=== PATIENT | male | born 1935 | race Caucasian/White ===

== ENCOUNTER 2016-02-28 09:42 | Emergency (ER) | payer OTHER ==
[2016-02-28 10:27] LABS: COLOR YELLOW; LEUKOCYTE ESTERASE,URINE NEGATIVE (NEGATIVE); NITRITE,URINE NEGATIVE (NEGATIVE); PH,URINE 6.5 (5.0-7.5)
[2016-02-28 10:51] VITALS: RESP 16
[2016-02-28 12:47] VITALS: BP 168/80; PULSE 71; TEMP 98.6; O2SAT 97
--- NOTE | 2016-02-28 12:57 | UCPHY ---
H & P Time Seen by Provider: 02/28/16 11:15 Patient Type: Established HPI/ROS: This patient with a known history of benign prostatic hypertrophy has had increasing difficulty passing urine over the past 4 days. He explains that he now is having urgency to urinate every 15 minutes but is only able to pass a very small amount of urine. He is also having some stress incontinence. He reports no other urinary symptoms. He has associated lower belly pressure of moderate severity similar to previous urinary obstruction. He notes no exacerbating or alleviating factors for his symptoms. He was started on Flomax after a visit in December to [facility] for the same ailment and followed up with Urology but was not continued on Flomax per his report. ROS: No fevers. No cardiopulmonary complaints. No upper belly pain. No vomiting. No testicle pain. 7 point ROS is otherwise negative Past Medical/Surgical History: Previous lower urinary obstruction from BPH Cardiac stents Hypertension Potential pelvic bone cancer being worked up currently per his . Smoking Status: Former smoker Physical Exam: General Appearance: Pleasant elderly male Alert, no distress. Eyes: Pupils equal and round no pallor or injection. ENT, Mouth: Mucous membranes moist. Respiratory: There are no retractions, lungs are clear to auscultation. Cardiovascular: Regular rate and rhythm. Gastrointestinal: Soft, mild lower belly tenderness with what feels to be by palpation an over distended bladder. Neurological: Alert with no deficits Skin: Warm and dry, no rashes. Musculoskeletal: Neck is supple nontender. Extremities are symmetrical, full range of motion. Psychiatric: Mood and affect normal DIFFERENTIAL DIAGNOSIS: After history and physical exam differential diagnosis was considered for urinary retention from lower urinary obstruction secondary to BPH, rule out UTI, Constitutional: Initial Vital Signs Temperature (C) 36.9 C 02/28/16 10:48 Heart Rate 69 02/28/16 10:48 Respiratory Rate 16 02/28/16 10:48 Blood Pressure 142/74 H 02/28/16 10:48 O2 Sat (%) 95 02/28/16 10:48 O2 Delivery Mode Room Air Allergies/Adverse Reactions: No Known Allergies Allergy (Verified 02/28/16 10:49) Home Medications: Medication Instructions Recorded ASPIRIN 01/20/16 CALCIUM 01/20/16 Clopidogrel 01/20/16 Crestor 01/20/16 Dulcolax 01/20/16 Irbesartan 01/20/16 Isosorbide Mononitrate 01/20/16 Metoprolol Succinate 01/20/16 Nexium 01/20/16 Pepcid 01/20/16 Tylenol 01/20/16 Zetia 01/20/16 Gabapentin 02/28/16 [place] 5/325 (*) 02/28/16 Tamsulosin HCl [Flomax 0.4 MG (*)] 0.4 mg PO DAILY #10 cap 02/28/16 MDM/Departure - MDM Diagnostics: Urinalysis is normal ED Course/Re-evaluation: Osborn catheter placed by our nurse with 1700 cc of urine out. Patient is fitted with a leg bag. He started on Flomax instructed to follow up with Urology again this week. - Depart Disposition: Home, Routine, Self-Care Clinical Impression: urinary retention, Urinary retention due to benign prostatic hyperplasia Condition: Good Instructions: Urinary Retention in Men (ED), Osborn Catheter Placement and Care (ED) Additional Instructions: Diagnosis: Lower urinary retention from benign prostatic hypertrophy Plan: Call Dr. Colbert to arrange follow-up appointment Flomax Continue your stool softeners for constipation. Prescriptions: Tamsulosin HCl [Flomax 0.4 MG (*)] 0.4 mg PO DAILY #10 cap Referrals: Owen Colbert MD [Medical Doctor] - As per Instructions Christina Chaves MD [Primary Care Provider] - As per Instructions - PQRS PQRS Measurement: 134: Depression screening and followup, PRIME MD-PHQ2 (12 years and older) Over the last 2 weeks, how often have you been bothered by any of the following problems? 1. Feeling down, depressed, or hopeless? 2. Little interest or pleasure in doing things? [Patient answered no to both 1 and 2] 130: Documentation of medications. Reviewed all patient medications, doses, route and frequency. 226: Do you smoke? [No.] 47: 65 and older: Advanced care planning. Patient designates surrogate decision maker as spouse. 51: 18 years old and older with diagnosis of COPD, spirometry performance. NA 52: 18 years old and older with COPD and symptoms of COPD or FEV1<60% predicted prescribed a B Agonist. NA
== END 2016-02-28 12:44 | disposition home or self-care (01) ==
LOC: CED 09:42
PROC: 0T9B70Z Drainage of Bladder with Drainage Device, Via Natural or Artificial Opening (ICD-10-PCS; principal; 2016-02-28)
DX: N40.1 Benign prostatic hyperplasia with lower urinary tract symptoms (principal); R33.9 Retention of urine, unspecified; I10 Essential (primary) hypertension; Z95.5 Presence of coronary angioplasty implant and graft; Z87.891 Personal history of nicotine dependence
CPT/HCPCS: 51702; G0463; 81003-PO; 99214-PO

== ENCOUNTER 2016-02-29 07:07 | Day surgery (SDC) | payer OTHER ==
[2016-02-29 08:13] LABS: HEMATOCRIT 42.1 % (40.0-51.0)
[2016-02-29 08:23] LABS: PROTIME(PATIENT) 13.1 SEC (12.0-15.0)
[2016-02-29 08:24] LABS: APTT 29.9 SEC (23.0-38.0)
[2016-02-29] MEDS ORDERED: MIDAZOLAM 2 MG/2 ML VIAL ONE (08:40)
[2016-02-29] MEDS ORDERED: fentaNYL 100 MCG/2 ML INJ ONE (08:41)
[2016-02-29] MEDS ORDERED: PROMETHAZINE HCL 25 MG/ML VIAL ONE (09:28)
[2016-02-29] MEDS ORDERED: BUPIVACAINE 0.25% 30 ML SDV ONE (09:46)
[2016-02-29] MEDS ORDERED: BUPIVACAINE 0.5% 10 ML SDV ONE (09:46)
--- NOTE | 2016-02-29 11:44 | CT ---
CT-Guided Core Needle Biopsy of Right Ilium History: Lytic tumor within multiple bones. Unknown primary source. Small pulmonary nodules have been reported on outside CT scan. Consent: Risks and benefits of the procedure were discussed in detail, and informed consent was obta ined. Medications: Intravenous conscious sedation and analgesia were given under my supervision. Vital sign s, pulse oximetry, and electrocardiogram were monitored. The patient received 0.5 milligrams of Verse d and 0.75 micrograms of fentanyl intravenously. 12.5 mg of Phenergan were given intravenously. Start time: 932. End time: 1014. Technique: With the patient prone, adhesive radiopaque grid was placed over the right buttock. Multid etector helical CT images were obtained using dose reduction technology. Skin site was selected and l abeled. The skin was prepped and draped in sterile fashion. 1% Xylocaine was used for local anestheti c in the soft tissues. A 22-gauge spinal needle was advanced to the surface of bone, and 0.5% bupivac cristal was injected for periosteal anesthesia. After skin bob with a scalpel, a 5 cm long 10-gauge herbert de needle was inserted into the peripheral cortex of the posterior edge of the right ilium, near the sacroiliac joint, confirmed with CT images. The guide needle allowed coaxial passage of standard celia th and long length 13-gauge bone biopsy needles, using the [employer] drill. Additional core tissue spe cimens were obtained using coaxial 18-gauge Biopty needle. Specimens were placed directly into formal in and Hanks solution. (Adherent specimens were initially rinsed off into sterile saline and later tr ansferred to formalin with a pipette.) Guide needle was removed. Sterile dressing was applied. The pa tienicole tolerated the procedure well and was taken to an observation room in stable condition. Findings: The guide needle abuts the posterior cortex of the right ilium just superficial to the larg e lytic area. Large lytic tumor infiltrates the right sacral wing, passing across the right sacroiliac joint to inf iltrate the right ilium, posteriorly. The tumor is expansile and measures up to 6.6 cm AP x 5.2 cm tr ansverse. Tumor invades the right sacral foramina at S1, S2, and S3, and also distorts the exiting ne rve roots and right lumbosacral plexus. Additional lytic lesions are observed, including a large lesi on in the right side of the vertebral body of L5, and a small lesion in the left superior articular f acet of L5. Impressions 1. CT-guided core needle biopsy of right ilium. 2. Multiple lytic lesions of bone. 3. Tumor invasion of multiple right sacral foramina and right lumbosacral plexus. - - - - - - - - - - - - - - - - - - - - - - - - - - - - - - - - - - - - - - - - - - - - (PQRS Measures: Current medications were listed in the medical record, including all known prescript ions, jigo-grh-bfaiatt medications, herbal medications, and nutritional supplements. Tobacco Use: Non e. Prophylactic Antibiotic: Unnecessary. VTE Prophylaxis: Unnecessary.)
[2016-03-03 16:10] LABS: FINAL DIAGNOSIS See Comments (()); MICROSCOPIC DESCRIPTION See Comments (())
== END 2016-02-29 12:40 | disposition home or self-care (01) ==
LOC: FIMAGING 07:07
PROVIDERS: ATTEND Internal Medicine Hematology & Oncology
PROC: 0QB23ZX Excision of Right Pelvic Bone, Percutaneous Approach, Diagnostic (ICD-10-PCS; principal; 2016-02-29 10:30)
DX: M53.3 Sacrococcygeal disorders, not elsewhere classified (principal); M54.10 Radiculopathy, site unspecified; M54.9 Dorsalgia, unspecified; I10 Essential (primary) hypertension; I25.10 Atherosclerotic heart disease of native coronary artery without angina pectoris
CPT/HCPCS: 88184-90; 88185-91; J2250; J2550; J3010

== ENCOUNTER 2016-03-01 13:05 | Emergency (ER) | payer OTHER ==
[2016-03-01 13:43] VITALS: BP 148/70; PULSE 75; RESP 18; TEMP 98; O2SAT 96
[2016-03-01 14:14] LABS: COLOR ORANGE; LEUKOCYTE ESTERASE,URINE NEGATIVE (NEGATIVE); NITRITE,URINE NEGATIVE (NEGATIVE); PH,URINE 6.5 (5.0-7.5)
[2016-03-01 14:28] LABS: RBC,URINE >182 /hpf (0-3)
[2016-03-01 14:29] LABS: BACTERIA TRACE /hpf (NONE SEEN); MUCUS 1+ /lpf (NONE-1+)
--- NOTE | 2016-03-01 14:40 | UCPHY ---
[id number] This patient reports 7 days of constipation-no belly movement in 7 days despite feeling that he needs ago he is unable to pass stool. He has been using senna S , Colace and Dulcolax without success. I saw him here 2 days ago for lower urinary obstruction with 1700 mL of urine output with Osborn catheter placement. Urine was clean at that time. He saw Dr. Colbert-urologist yesterday with plan to keep the Osborn catheter in for another day beyond today. He denies any significant associated symptoms with the constipation other than being unable to have a bowel movement. Patient was started on hydrocodone which she has been taking periodically for pain related to pelvic lytic lesions. ROS: No fevers. He reports no significant abdominal pain. He did notice slightly pink tinged urine this morning for the 1st time he reports mild discomfort in the penis from the Osborn catheter. He also requests a new leg bag because it is becoming disconnected from the Osborn catheter he reports no back pain. No dark tarry stools or bloody stools. No nausea vomiting. He still tolerating good p.o. intake and 7 point ROS is otherwise negative. Past Medical/Surgical History: Recent history is notable for lytic lesions of the pelvis with unknown primary source he had a needle biopsy done by Dr. Owen Ruelas interventional Radiology yesterday of a sacral lesion A review of the patient's chart reveals normal electrolytes and kidney function on February 15, 2016 Smoking Status: Former smoker Physical Exam: General Appearance: Alert, no distress. Eyes: Pupils equal and round no pallor or injection. ENT, Mouth: Mucous membranes moist. Respiratory: There are no retractions, lungs are clear to auscultation. Cardiovascular: Regular rate and rhythm. Gastrointestinal: Abdomen is soft and nontender, no masses, bowel sounds normal. Rectal exam: Patient has brown stool, mild prostatic swelling with no tenderness no hemorrhoids no tenderness no stool impaction : No testicular swelling or tenderness. Osborn catheter is in place Neurological: Alert with no focal deficits Skin: Warm and dry, no rashes. Musculoskeletal: Neck is supple nontender. Extremities are symmetrical, full range of motion. Psychiatric: Mood and affect are normal DIFFERENTIAL DIAGNOSIS: After history and physical exam differential diagnosis was considered for [ ] Constitutional: Initial Vital Signs Temperature (C) 36.6 C 03/01/16 13:40 Heart Rate 75 03/01/16 13:40 Respiratory Rate 18 03/01/16 13:40 Blood Pressure 148/70 H 03/01/16 13:40 O2 Sat (%) 96 03/01/16 13:40 O2 Delivery Mode Room Air Allergies/Adverse Reactions: No Known Allergies Allergy (Verified 02/28/16 10:49) Home Medications: Medication Instructions Recorded ASPIRIN 01/20/16 CALCIUM 01/20/16 Clopidogrel 01/20/16 Crestor 01/20/16 Dulcolax 01/20/16 Irbesartan 01/20/16 Isosorbide Mononitrate 01/20/16 Metoprolol Succinate 01/20/16 Nexium 01/20/16 Pepcid 01/20/16 Tylenol 01/20/16 Zetia 01/20/16 Gabapentin 02/28/16 [place] 5/325 (*) 02/28/16 Tamsulosin HCl [Flomax 0.4 MG (*)] 0.4 mg PO DAILY #10 cap 02/28/16 Gabapentin 03/01/16 Vicodin 5-300 mg Tablet 03/01/16 MDM/Departure - [facility] ED Course/Re-evaluation: Soapsuds enema followed by large BM. The patient feels relief. We counseled him regarding constipation. - Depart Disposition: Home, Routine, Self-Care Clinical Impression: Constipation Qualifiers: Constipation type: drug induced constipation Qualifier Code: (K59.03) Drug induced constipation Condition: Good Instructions: High Fiber Diet (ED), Constipation (ED) Additional Instructions: Diagnosis: Medication related constipation 2. Lower urinary obstruction Plan: Drink plenty fluids Continue current medications Add MiraLax-take daily in addition to her other meds until constipation resolved Follow-up with primary care physician The emergency department for any significant worsening despite the treatment plan Referrals: Christina Chaves MD [Primary Care Provider] - As per Instructions - PQRS PQRS Measurement: 134: Depression screening and followup, PRIME -PHQ2 (12 years and older) Over the last 2 weeks, how often have you been bothered by any of the following problems? 1. Feeling down, depressed, or hopeless? 2. Little interest or pleasure in doing things? Patient answered no to both 1 and 2 130: Documentation of medications. Reviewed all patient medications, doses, route and frequency. 226: Do you smoke? [No.] 47: 65 and older: Advanced care planning. Patient designates surrogate decision maker as spouse 51: 18 years old and older with diagnosis of COPD, spirometry performance. NA 52: 18 years old and older with COPD and symptoms of COPD or FEV1<60% predicted prescribed a B Agonist. NA
== END 2016-03-01 15:28 | disposition home or self-care (01) ==
LOC: CED 13:05
DX: K59.03 Drug induced constipation (principal); N13.9 Obstructive and reflux uropathy, unspecified
CPT/HCPCS: 81003-PO; 81015-PO; 82270-PO; G0463-PO

== ENCOUNTER → 2016-03-16 | Outpatient (CLI) | payer OTHER ==
[~2016-03-16] MED LIST: GADOBUTROL 10 ML VIAL IVP ONE
--- NOTE | 2016-03-16 17:14 | MR ---
MRI of the Brain (Without and With Contrast) at 1542 hours Clinical Indications: Staging metastatic lung carcinoma Technique: T1-weighted images were acquired axially and sagittally from the foramen magnum to the ve rtex. Axial fast inversion-recovery, fast T2-weighted, and diffusion-weighted axial images were obta ined without contrast. Postcontrast axial and coronal images with the uneventful intravenous administ ration of 9 mL Gadavist contrast. Findings: Slightly limited due to patient motion artifact. The ventricles, cisterns, and sulci are wi dened consistent with atrophy. No hydrocephalus, midline shift, herniation, or epidural/subdural hem atomas. No intracranial hemorrhage or masses. Diffusion-weighted images demonstrate no acute infarct. Cerebellar tonsils are in normal position. Pituitary gland is normal in size. Normal signal flow-voi d in the superior sagittal sinus, basilar artery, and bilateral internal carotid arteries indicating patency. Several nonspecific bilateral white matter hyperintense T2/FLAIR signal abnormalities withou t mass effect or enhancement. Postcontrast images demonstrate no enhancing lesions or abnormal leptom eningeal enhancement. Paranasal sinuses and mastoid air cells are clear. Impression: 1. Mild atrophy. 2. No acute hemorrhage, definite acute infarct, hydrocephalus or mass effect. 3. Multiple nonspecific hyperintense T2/FLAIR signal abnormalities in the white matter of bilateral c erebral hemispheres. Differential diagnosis includes moderate microvascular ischemic gliosis, post-in fectious/post-inflammatory sequela, versus less likely atypical demyelinating disease, or migraine-re lated sequela. 4. No enhancing lesions or cerebral metastasis.
== END ==
LOC: FIMAGING 14:42
PROVIDERS: ATTEND Internal Medicine Hematology & Oncology
DX: R90.89 Other abnormal findings on diagnostic imaging of central nervous system (principal); C34.90 Malignant neoplasm of unspecified part of unspecified bronchus or lung
CPT/HCPCS: 70553; A9585

== ENCOUNTER 2016-04-14 01:29 | Inpatient (IN) | payer OTHER ==
[2016-04-14] MEDS ORDERED: ONDANSETRON DISINTEGRATING 4 MG TAB PO PRN (03:28)
[2016-04-14] MEDS ORDERED: ACETAMINOPHEN 325 MG TAB PO PRN (03:28)
[2016-04-14] MEDS ORDERED: ONDANSETRON 4 MG/2 ML VIAL IVP PRN (03:28)
[2016-04-14] MEDS ORDERED: HYDROmorphONE/DILAUDID 1 MG/ML SYR IVP PRN ×3 (03:36→06:31)
--- NOTE | 2016-04-14 03:49 | PDGENHP ---
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 Patient has chronic R sided pain related to his osseous mets which was being controlled with an oral pain regimen, however, earlier in the week he began noticing new L side upper leg and hip pain. He denies any obvious trauma to the area and denied any recent fall. He describes the pain as throbbing, originating in his posterior L hip, radiating down his posterior thigh to just superior to the posterior knee. He denies any associated numbness, weakness or tingling. He went to the [facility] ED on 04/11 for these symptoms, was given pain control and discharged home. The pain continued to intensify over the following days, by 03/2016 patient was unable to ambulate due to intense pain. He did also report one episode of urinary incontinence, which he attributes to being unable to physically get to the toilet due to his pain and difficulty ambulating. He spoke to his oncologist regarding these symptoms and he was advised to return to the ED for further evaluation. Patient lives in a two-story home with his , who also uses a cane to ambulate. Given the acute severity of his pain, he has been unable to ambulate around his home. At baseline he is dependent on a walker to ambulate. Patient does report a new wet, but nonproductive cough that has developed over the past 2-3 days. He denies any associated fevers, chills, TURK, dizziness, chest pain, shortness of breath, nausea, vomiting or diarrhea. He also denies any sick contacts or recent travel. On arrival to the [facility] ER, patient was afebrile and hemodynamically stable (T 37C, BP 120/49, HR 60, O2 Sat 94% ra). Labs, including BMP and CBC, were unremarkable. Patient was given pain control and pain severity stabilized. Patient was then transferred to [facility] for admission given the fact that he receives his oncological care here. History Information - Allergies/Home Medication List Allergies/Adverse Reactions: No Known Allergies Allergy (Verified 02/28/16 10:49) Home Medications: ASPIRIN 01/20/16 [Last Taken Unknown] CALCIUM 01/20/16 [Last Taken Unknown] Clopidogrel 01/20/16 [Last Taken Unknown] Crestor 01/20/16 [Last Taken Unknown] Dulcolax 01/20/16 [Last Taken Unknown] Irbesartan 01/20/16 [Last Taken Unknown] Isosorbide Mononitrate 01/20/16 [Last Taken Unknown] Metoprolol Succinate 01/20/16 [Last Taken Unknown] Nexium 01/20/16 [Last Taken Unknown] Pepcid 01/20/16 [Last Taken Unknown] Tylenol 01/20/16 [Last Taken Unknown] Zetia 01/20/16 [Last Taken Unknown] Gabapentin 02/28/16 [Last Taken Unknown] [place] 5/325 (*) 02/28/16 [Last Taken Unknown] Gabapentin 03/01/16 [Last Taken Unknown] Vicodin 5-300 mg Tablet 03/01/16 [Last Taken Unknown] I have personally reviewed and updated: family history, medical history, social history, surgical history - Past Medical History Additional medical history: 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 HTN. CAD s/p PCI. PAD s/p R femoral PCI. BPH - Surgical History Additional surgical history: TURP - Family History Additional family history: Father/sister: colon ca. Brother: prostate ca - Social History Smoking Status: Former smoker (x about 20 years, quit > 30 years ago) Alcohol Use: Occasionally (1 beer nightly) Drug Use: None Additional social history: Patient lives with his in their home. Retired. Review of Systems ROS: 10pt was reviewed & negative except for what was stated in HPI & below Physical Exam BP 139/62, HR 64, RR 16, O2 Sat 95% on 1L NC Constitutional: no apparent distress, appears nourished, not in pain Eyes: PERRL, anicteric sclera, EOMI Ears, Nose, Mouth, Throat: moist mucous membranes, hearing normal, ears appear normal, no oral mucosal ulcers Cardiovascular: regular rate and rhythym, no murmur, rub, or gallop, pulses symmetric bilaterally, No JVD, No edema Peripheral Pulses: 2+: dorsalis-pedis (R), dorsalis-pedis (L) Respiratory: no respiratory distress, no rales or rhonchi, clear to auscultation Gastrointestinal: normoactive bowel sounds, soft, non-tender abdomen, no palpable masses, No guarding, No rebound, No distension Genitourinary: no bladder fullness, no bladder tenderness Skin: warm, normal color, no rashes or abrasions, no fluctuance, No mottled Musculoskeletal: full muscle strength, normal joint ROM, no joint effusions, other (marked tenderness of lumbosacral paraspinal muscles, no obvious midline spinal tenderness) Neurologic: AAOx3, sensation intact bilaterally, CN II-XII Intact, No weakness, No numbness, No pronator drift, No facial droop Psychiatric: interacting appropriately, not anxious, not encephalopathic, thought process linear Lab Data & Imaging Review [facility] ED Labs: BMP: 134 / 4.2 / 102 / 26 / 45 / 1.06 < 85 Ca 8.3 CBC: 7.8 > 12 / 37 < 176 Visualized and Interpreted Chest x-ray results: Yes Chest X-Ray results: no infiltrate, other (elevated L hemidiaphragm) Assessment & Plan Assessment: Patient is an 80-year-old male with history of CAD, CAD, BPH and stage IV adenocarcinoma of the lung with multiple osseous lesion in the lumbar and sacral spine who presents to the ED with complaint of acute on chronic left- sided hip and lower extremity pain. Plan: # acute L lower extremity pain Patient denies any provoking fall or trauma. On exam, patient is without reflag cord compression symptoms/signs. Differential includes acute pathologic fracture , acute on chronic radiculopathy, cauda equina syndrome or new/progression of bony mets. Will check stat x-ray of pelvis and L hip, initiate IV dexamethasone and check MRI L-spine. Will cont home MS Contin BID dosing with IV and PO pain meds prn for breakthrough pain. # cough Patient describes a new cough that began about 2 days ago. No associated fever, chills, sputum production or shortness of breath and no leukocytosis on labs. Portable cxr obtained, no obvious infiltrate on my read, official read pending. Will provide symptomatic treatments prn. # CAD Patient denies any cardiac symptoms on presentation. Will confirm and continue home meds. # chronic Peripheral artery disease Stable. Have low suspicion that presenting pain/symptoms are related to PVD. Confirm and cont home meds. # BPH Denies urinary symptoms, cont home meds # dispo: admit to inpatient service for likely > 2 [place] stay # gen: Cardiac diet DVT ppx: high risk, lovenox DNR/DNI as expressed by patient and his on admission
[2016-04-14] MEDS: oxyCODONE IR 5 MG TAB PO PRN ×2 (03:50→06:31)
[2016-04-14] MEDS: DEXAMETHASONE 4 MG/ML VIAL IVP SCH ×4 (05:52→23:51)
[2016-04-14 06:08] LABS: % IMMATURE GRANULYOCYTES 0.5 % (0.0-1.1); ABSOLUTE IMMATURE GRANULOCYTES 0.04 10^3/uL (0.00-0.10); ADD DIFF? NO; ADD MORPH? NO; ADD SCAN? YES; ATYPICAL LYMPHOCYTE FLAG 0 (0-99); FRAGMENT RBC FLAG 0 (0-99); HEMATOCRIT 35.1 % (40.0-51.0); HEMOGLOBIN 11.1 g/dL (13.7-17.5); LEFT SHIFT FLG 0 (0-99); LIPEMIA HEMOLYSIS FLAG 80 (0-99); MEAN CELL HEMOGLOBIN 26.4 pg (27.9-34.1); MEAN CELL HEMOGLOBIN CONCENTR. 31.6 g/dL (32.4-36.7); MEAN CELL VOLUME 83.6 fL (81.5-99.8); MEAN PLATELET VOLUME 8.8 fL (8.7-11.7); PLATELET CLUMPS FLAG 0 (0-99); PLATELET COUNT 184 10^3/uL (150-400); RED CELL DISTRIBUTION WIDTH 18.1 % (11.5-15.2)
[2016-04-14 06:11] LABS: INR 1.08 (0.83-1.16); PROTIME(PATIENT) 13.9 SEC (12.0-15.0)
[2016-04-14 06:12] LABS: APTT 27.4 SEC (23.0-38.0)
[2016-04-14] MEDS ORDERED: HYDROmorphONE/DILAUDID 1 MG/ML SYR IVP ONE (06:30)
[2016-04-14 06:52] LABS: SCAN POSITIVE
[2016-04-14 06:57] LABS: ACANTHOCYTES 1+; HYPOCHROMIA 1+; PLATELET ESTIMATE ADEQUATE (ADEQ)
[2016-04-14 07:39] LABS: ALANINE AMINOTRANSFERASE 34 IU/L (21-72); ALBUMIN 2.7 g/dL (3.5-5.0); ALKALINE PHOSPHATASE 129 IU/L (38-126); ANION GAP 5 mEq/L (8-16); ASPARTATE AMINOTRANSFERASE 24 IU/L (17-59); BILIRUBIN,TOTAL 1.1 mg/dL (0.1-1.4); CARBON DIOXIDE 26 mEq/l (22-31); CHLORIDE 101 mEq/L (97-110); CREATININE 0.8 mg/dL (0.7-1.3); GLOMERULAR FILTRATION RATE > 60; GLUCOSE 80 mg/dL (70-100); MAGNESIUM 2.2 mg/dL (1.6-2.3); POTASSIUM 4.4 mEq/L (3.5-5.2); SODIUM 132 mEq/L (134-144); TOTAL PROTEIN 5.1 g/dL (6.3-8.2)
[2016-04-14] MEDS ORDERED: ENOXAPARIN 40 MG/0.4 ML SYR SC SCH (09:00)
--- NOTE | 2016-04-14 09:32 | HOSPPROG ---
Hospitalist Progress Note Assessment/Plan: #Acute left leg pain: xray shows proximal lytic lesion, L4-L5 compression (new from MRI Dec) MRI today shows L4-5 compression. Appreciate NSGY consultation. -could do palliative decompression if pain uncontrolled -IV steroids, MS Contin, PRN oxycodone. Increase gabapentin as tolerated #Metastatic lung adenocarcinoma -recent XRT to lumbar/sacrum #CAD: cont ASA, statin, Plavix, BB Subjective: pain better this morning Objective: Vital Signs Temp Pulse Resp BP Pulse Ox 36.3 C 62 12 115/64 96 04/14/16 07:44 04/14/16 07:44 04/14/16 07:44 04/14/16 07:44 04/14/16 07:44 Laboratory Results 04/14/16 06:00 04/14/16 06:00 04/13/16 04/14/16 04/15/16 05:59 05:59 05:59 Output Total 500 Balance -500 PT 13.9 SEC (12.0-15.0) 04/14/16 06:00 INR 1.08 (0.83-1.16) 04/14/16 06:00 ICD10 Worksheet Patient Problems: Problems Problem Status Onset Urinary retention due to benign prostatic hyperplasia Acute
[2016-04-14] MEDS: morphINE SR 30 MG TAB PO SCH ×4 (10:22→23:51)
[2016-04-14 11:12] LABS: COLOR YELLOW; LEUKOCYTE ESTERASE,URINE NEGATIVE (NEGATIVE); NITRITE,URINE NEGATIVE (NEGATIVE)
[2016-04-14 11:18] LABS: RBC,URINE 50-182 /hpf (0-3)
[2016-04-14] MEDS ORDERED: BISACODYL 5 MG EC TAB PO PRN (11:29)
[2016-04-14] MEDS ORDERED: PROCHLORPERAZINE MALEATE 10 MG TAB PO PRN (11:29)
[2016-04-14] MEDS ORDERED: NON-FORMULARY NEW DRUG (Esomeprazole Mag Trihydrate [Nexium] 40 MG) PO SCH (11:30)
--- NOTE | 2016-04-14 12:21 | GHP ---
[f rep st] HISTORY AND PHYSICAL DATE OF ADMISSION: 04/14/2016 HISTORY OF PRESENT ILLNESS: The patient is a very pleasant, 80-year-old, patient of Dr. Yordy Marrufo, who was recently diagnosed with lung carcinoma. To review, he presented with increasing back pain r adiating into his right leg. An MRI of his lumbar spine showed a right paravertebral tumor at L5, a nd there were additional findings of osseous metastatic disease at L4, L5, S1 and S2. Additional ev aluation led to a biopsy which showed pathologic changes most consistent with a lung carcinoma. A P ET scan did not show an obvious pulmonary primary but he did have guido and infrahilar and subcarinal metastatic adenopathy. Tumor was negative for EGFR, ALK and Ross 1. PD L1 testing was not perform ed. He underwent radiation therapy to L4 through his SI joints from 03/13-03/24, and received his 1st cycle of chemotherapy with carboplatin and Alimta 4 days ago under the direction of Dr. aMrrufo. Thr ee days ago however he noted a sudden onset of increased back pain with some radiation down his left leg with some accompanying weakness, and after attempts to control his pain at home, he came in to go to [facility]. A repeat MRI of his lumbar spine performed early this morning show s a new pathologic fracture at L5 with right paramedian retropulsion with right ventral epidural sof t tissue and severe bilateral facet arthropathy resulting in severe central canal stenosis at L4-L5. There was also moderate canal stenosis at L3-4, presumably related to benign changes including dis c bulging and facet arthropathy. He currently says his pain is a bit better with pain medicine. He is unable to walk secondary to pain and some leg weakness. PAST MEDICAL HISTORY: Significant for coronary artery disease. He has multiple stents. He also byers s history of BPH. SOCIAL HISTORY: He is , accompanied by his . He has a 20 pack-year smoking history but quit 30 years ago. FAMILY HISTORY: Father and sister had a history of colon carcinoma. He is retired. PHYSICAL EXAMINATION: VITAL SIGNS: Blood pressure 115/64, he is afebrile. HEENT: He is not icteri c. I detect no adenopathy. LUNGS: Clear. CARDIAC: Unremarkable. ABDOMEN: Benign. EXTREMITIES : He is weak in his left leg, particularly with flexion. ADMISSION LABORATORY: Examination shows white count of 7000, hemoglobin 11, hematocrit 35, platelet s of 184,000. IMPRESSION: Patient with lung carcinoma, new pathologic fracture at L5. Neurosurgery consult is leila pérez. We may need to treat him conservatively. He has already been irradiated in this area. Opti ons regarding surgery may be limited and we may need to treat this as conservatively as possible. /[id number]/MODL
[2016-04-14] MEDS: HYDROmorphONE/DILAUDID 1 MG/ML SYR IVP PRN (13:49)
--- NOTE | 2016-04-14 14:01 | GCON ---
[f rep st] CONSULTATION NEUROSURGICAL CONSULTATION DATE OF CONSULTATION: 04/14/2016 REASON FOR CONSULTATION: Left lower extremity pain with evidence of lumbar stenosis from tumor cm en. HOSPITAL COURSE/HISTORY/ MAJOR MEDICAL FINDINGS: The patient is an 80-year-old gentleman who has kn own metastatic lung carcinoma. He does see Dr. Tg Marrufo primarily for oncology, but has been se en by Dr. Thomas here in house. He presented to [facility] earlier this morning with worsening back pain an d pain into his left lower extremity. He underwent an MRI that demonstrated a right paravertebral t umor at L5 with osseous metastatic disease at L4, L5, S1 and S2. The patient today states that the medications that he is taking are helping with the pain somewhat. He denies any focal weakness, but when the pain increases, he feels like it is too much pain to move his legs. He denies any loss of bowel or bladder control. REVIEW OF SYSTEMS: The review of systems is negative, other than what is stated in the HPI. Please see report for pertinent negatives and pertinent positives. PAST MEDICAL HISTORY: Significant for coronary artery disease with about 7 stents, per his . Saige olivier also has a history of BPH. PAST SURGICAL HISTORY: Significant for stent placement. The patient also underwent a TURP. ONCOLOGICAL HISTORY: The patient has recently undergone radiation to this area of his spine. As we ll, he is on his 1st cycle of chemotherapy with carboplatin and Alimta. SOCIAL HISTORY: The patient is . His is at his bedside today. He does have a history of a 20-year smoking history, but quit about 30 years ago. ALLERGIES: No known drug allergies. MEDICATIONS: Home medications include aspirin 81 mg 1 p.o. daily, calcium, multivitamin, Plavix 1 p .o. daily, Crestor, Dulcolax, irbesartan, isosorbide mononitrate, metoprolol, Nexium, Pepcid, Tyleno l, Zetia, gabapentin, [place] 5/325 p.r.n. pain.7 PHYSICAL EXAM: VITAL SIGNS: BP is 115/67, his heart rate is 62, he is 96% on 1 L nasal cannula, hi s temperature 36.3. GENERAL: The patient is in no acute distress. He is alert and oriented x3. A nswers questions appropriately. His affect is appropriate for the given situation. HEENT: Cranial nerves II through XII are grossly intact. EOMI and PERRLA. NEUROLOGIC: The patient is 5/5 and eq ual in bilateral upper and bilateral lower extremities, including his deltoids, triceps, biceps, wri st flexors and extensors, interossei, intrinsic residential appraiser, iliopsoas, hamstrings, quadriceps, plantarflex ion, dorsiflexion, and EHL. His sensation is intact in bilateral upper and bilateral lower extremit ies. IMAGING: The patient underwent a lumbar spine MRI which demonstrated worsening of his lumbosacral m etastasis, an L5 mild pathological fracture with retropulsion, resulting in severe central canal rose marie nosis, with severe central canal stenosis at L4-5. There is moderate canal stenosis noted at L3-4 w ith facet arthropathy. ASSESSMENT AND PLAN: The patient is an 80-year-old gentleman with known metastatic lung cancer who has developed severe stenosis in his lumbar spine and bony destruction from tumor burden from L4 to the S2 area. The patient was seen both by Dr. Tyson and myself, and at this point in time, given h is medical comorbidities including being on aspirin and Plavix, and his level of tumor burden and curt ny destruction, we would advise optimizing medical and conservative management at this time. It was discussed with the patient and his that surgical options would include a large lumbar decompre ssion with fusion for stabilization, but at this point in time would not recommend that option for t he patient given his other ongoing medical issues. I have discussed this with Dr. Thomas, the treating oncologist, and recommended optimizing medical ma nagement, including increasing his gabapentin as tolerated. PT/OT as tolerated. If the patient has any change in neurologic or motor exam, please notify Neurosurgery. /[id number]/MODL
[2016-04-14] MEDS: ASPIRIN EC 81 MG TAB PO SCH (15:20)
[2016-04-14] MEDS: GABAPENTIN 300 MG CAP PO SCH ×3 (15:20→21:44)
[2016-04-14] MEDS: CLOPIDOGREL BISULFATE 75 MG TAB PO SCH (15:20)
[2016-04-14] MEDS: FOLIC ACID 1 MG TAB PO SCH (15:21)
[2016-04-14] MEDS: METOPROLOL TARTRATE 50 MG TAB PO SCH ×2 (15:21→21:42)
[2016-04-14] MEDS: SENNOSIDES/DOCUSATE SODIUM TAB PO SCH ×2 (15:23→21:31)
[2016-04-14] MEDS: POLYETHYLENE GLYCOL 3350 17 GM PKT PO PRN (15:23)
[2016-04-14] MEDS: ISOSORBIDE DINITRATE 20 MG TAB PO SCH (15:24)
[2016-04-14] MEDS ORDERED: GABAPENTIN 100 MG CAP PO SCH (16:00)
[2016-04-14] MEDS: MAG HYDROX/AL HYDROX/SIMETH 30 ML UDCUP PO PRN (17:34)
[2016-04-14] MEDS: FAMOTIDINE 20 MG TAB PO SCH (21:33)
[2016-04-15] MEDS: DEXAMETHASONE 4 MG/ML VIAL IVP SCH ×3 (05:08→17:59)
[2016-04-15 05:59] LABS: HEMATOCRIT 36.8 % (40.0-51.0); HEMOGLOBIN 11.6 g/dL (13.7-17.5); MEAN CELL HEMOGLOBIN 26.2 pg (27.9-34.1); MEAN CELL HEMOGLOBIN CONCENTR. 31.5 g/dL (32.4-36.7); MEAN CELL VOLUME 83.3 fL (81.5-99.8); RED BLOOD CELL COUNT 4.42 10^6/uL (4.40-6.38); RED CELL DISTRIBUTION WIDTH 17.4 % (11.5-15.2)
[2016-04-15 06:20] LABS: ANION GAP 6 mEq/L (8-16); CALCIUM 8.5 mg/dL (8.5-10.4); CARBON DIOXIDE 26 mEq/l (22-31); CHLORIDE 100 mEq/L (97-110); CREATININE 0.7 mg/dL (0.7-1.3); GLOMERULAR FILTRATION RATE > 60; GLUCOSE 113 mg/dL (70-100); SODIUM 132 mEq/L (134-144)
[2016-04-15] MEDS: morphINE SR 30 MG TAB PO SCH ×2 (08:22→20:25)
[2016-04-15] MEDS: EZETIMIBE 10 MG TAB PO SCH (08:22)
[2016-04-15] MEDS: FOLIC ACID 1 MG TAB PO SCH (08:22)
[2016-04-15] MEDS: PANTOPRAZOLE SODIUM 40 MG TAB PO SCH (08:22)
[2016-04-15] MEDS: CLOPIDOGREL BISULFATE 75 MG TAB PO SCH (08:22)
[2016-04-15] MEDS: SENNOSIDES/DOCUSATE SODIUM TAB PO SCH ×2 (08:22→20:26)
[2016-04-15] MEDS: ROSUVASTATIN CALCIUM 10 MG TAB PO SCH (08:22)
[2016-04-15] MEDS: GABAPENTIN 300 MG CAP PO SCH ×3 (08:22→20:26)
[2016-04-15] MEDS: METOPROLOL TARTRATE 50 MG TAB PO SCH ×2 (08:23→20:25)
[2016-04-15] MEDS: ASPIRIN EC 81 MG TAB PO SCH (08:23)
[2016-04-15] MEDS ORDERED: NON-FORMULARY NEW DRUG (Rosuvastatin Calcium [Crestor 5mg] 5 MG) PO SCH (09:00)
[2016-04-15] MEDS: ISOSORBIDE DINITRATE 20 MG TAB PO SCH (09:54)
[2016-04-15] MEDS: IRBESARTAN 150 MG TAB PO SCH (09:55)
--- NOTE | 2016-04-15 10:34 | HOSPPROG ---
Hospitalist Progress Note Assessment/Plan: #Acute left leg pain: much improved. Due to lytic lesion (new from MRI Dec) -pain well controlled on IV steroids, MS Contin, PRN oxycodone. Increase gabapentin slowly. -I discussed case with Dr. Turner, who stated palliative nail could be performed; he will meet with family tomorrow -non-weight bearing #L4-5 compression fracture: NSGY evaluated. Opt for conservative management given extensive surgery warrants to stabilize spine #Metastatic lung adenocarcinoma -recent XRT to lumbar/sacrum #CAD: cont ASA, statin. Hold Plavix/ASA starting tomorrow in case wish to proceed with ortho procedure next week #LLL PNA: (opacity on CXR, reviewed by me) Productive cough, start Azithro/CTX #Acute hypoxemic resp failure: due to PNA and atelectasis. Abx and incentive spirometry #Goals: extensive meeting with son, [id number], [id number] and . Explained that pt has limited time and important to focus on his goals. They are deciding whether to have any surgeries. I recommended palliative care; will have SW arrange for meeting with a group. I explained Hospice as well and various DC options: home vs. SNF. Family will discuss options with him this evening. Readdress tomorrow Time spent on visit: 75 min in which 50 min spent counseling family on goals, hospice and remaining time coordinating with consultants Subjective: cough with green sputum Objective: Vital Signs Temp Pulse Resp BP Pulse Ox 36.7 C 71 20 162/82 H 99 04/15/16 07:49 04/15/16 08:23 04/15/16 07:49 04/15/16 08:23 04/15/16 08:21 Laboratory Results 04/15/16 05:36 04/15/16 05:36 04/14/16 04/15/16 04/16/16 05:59 05:59 05:59 Intake Total 200 Output Total 1250 200 Balance -1050 -200 PT 13.9 SEC (12.0-15.0) 04/14/16 06:00 INR 1.08 (0.83-1.16) 04/14/16 06:00 - Physical Exam Constitutional: no apparent distress Eyes: PERRL Ears, Nose, Mouth, Throat: moist mucous membranes, hearing normal Cardiovascular: regular rate and rhythym, no murmur, rub, or gallop Respiratory: other (decreased BS left base) Gastrointestinal: normoactive bowel sounds, soft, non-tender abdomen Genitourinary: no bladder fullness Skin: warm Musculoskeletal: other (weakness LLE) Neurologic: AAOx3, CN II-XII Intact Psychiatric: interacting appropriately ICD10 Worksheet Patient Problems: Problems Problem Status Onset Urinary retention due to benign prostatic hyperplasia Acute
[2016-04-15] MEDS: NS 1,000 ML IV SCH (12:09)
[2016-04-15] MEDS: AZITHROMYCIN 250 MG TAB PO SCH (12:35)
--- NOTE | 2016-04-15 12:46 | SOAPPROG ---
SOAP Progress Note Assessment/Plan: Assessment: 1.) NSCLC, stage IV disease with extensive skeletal mets, on first line therapy with Carboplatin + Pemetrexed, Cycle 1, Day 5 today. Pt has extensive lumbar disease, causing pain. He did receive XRT to spine before first course of chemotherapy. 2.) LLL infiltrate, c/w pneumonia - no antibiotics 3.) Hypoxemia 4.) COPD 5.) CAD, S/P placement of multiple intra-coronary art. stents 6.) L prox. femur lytic disease- at risk for path. Fx 7.) Pain control issues 8.) Mobility issues. Plan: 1.) Continue antibiotics, oxygen, supportive meds and analgesics. 2.) Orthopedic Surgery Consult to determine if patient needs and is a candidate for prophylactic L femur everardo stabilization. Discussed with patient and family at length. 04/15/16 12:41 Subjective: Pt with lumbar region and Left femur pain and needs to be recumbent in bed to find position of comfort. Getting adequate pain medications. Mild constipation (+). Objective: VSS, afebrile, as noted here HEENT- pale, anicteric, Chest- rhonchi at L base CVS- RSR, no extra HS ABD- soft, NT no mass or HSM EXT- minimal leg edema. SCD in place over both LE Labs as noted here. Vital Signs Temp Pulse Resp BP Pulse Ox 36.7 C 71 20 162/82 H 99 04/15/16 07:49 04/15/16 08:23 04/15/16 07:49 04/15/16 08:23 04/15/16 08:21 Laboratory Results 04/15/16 05:36 04/15/16 05:36 04/14/16 04/15/16 04/16/16 05:59 05:59 05:59 Intake Total 200 Output Total 1250 200 Balance -1050 -200 PT 13.9 SEC (12.0-15.0) 04/14/16 06:00 INR 1.08 (0.83-1.16) 04/14/16 06:00 ICD10 Worksheet Patient Problems: Problems Problem Status Onset Urinary retention due to benign prostatic hyperplasia Acute
[2016-04-15] MEDS: ISOSORBIDE DINITRATE 10 MG TAB PO SCH (16:12)
[2016-04-15] MEDS: MAG HYDROX/AL HYDROX/SIMETH 30 ML UDCUP PO PRN (18:10)
[2016-04-15] MEDS: FAMOTIDINE 20 MG TAB PO SCH (20:25)
[2016-04-15] MEDS ORDERED: GABAPENTIN 300 MG CAP PO SCH (21:00)
[2016-04-16] MEDS: NS 1,000 ML IV SCH ×2 (00:03→13:26)
[2016-04-16] MEDS: DEXAMETHASONE 4 MG/ML VIAL IVP SCH ×5 (00:03→23:48)
--- NOTE | 2016-04-16 08:34 | HOSPPROG ---
Hospitalist Progress Note Assessment/Plan: #Acute left leg pain: femur lytic lesion (new from MRI Dec) -pain well controlled on IV steroids. MS Contin. Not needed PRN opioids. Increase gabapentin slowly. -I discussed case with Dr. Turner and family and agree with intratrochanteric nail for Wed. Holding ASA, Plavix -non-weight bearing #L4-5 compression fracture: NSGY evaluated. Opt for conservative management given extensive surgery warrants to stabilize spine. NSGY team to address family 's questions Sunday #Metastatic lung adenocarcinoma -recent XRT to lumbar/sacrum, recent chemo #CAD: cont ASA, statin. Hold Plavix/ASA starting tomorrow in case wish to proceed with ortho procedure next week #LLL PNA: (opacity on CXR, reviewed by me) Day 2 Azithro/CTX. #Acute hypoxemic resp failure: due to PNA and atelectasis. Abx and incentive spirometry #Diet: regular #DVT ppx: Lovenox; will hold prior to surgery #Goals: family and pt agree to ortho procedure. They have much concerns with spinal stability. NSGY to address tomorrow. Cont discussions on DC plan whether home vs. SNF. Family accepts palliative care consult Time spent on visit: 60 min in which 45 min spent counseling family on surgical options and coordinating with ortho, NSGY Subjective: pain controlled, had BM Objective: Vital Signs Temp Pulse Resp BP Pulse Ox 36.9 C 64 18 166/72 H 100 04/16/16 07:31 04/16/16 07:31 04/16/16 07:31 04/16/16 07:31 04/16/16 07:31 Laboratory Results 04/15/16 05:36 04/15/16 05:36 04/15/16 04/16/16 04/17/16 05:59 05:59 05:59 Intake Total 200 1845 Output Total 1250 1075 Balance -1050 770 PT 13.9 SEC (12.0-15.0) 04/14/16 06:00 INR 1.08 (0.83-1.16) 04/14/16 06:00 - Physical Exam Constitutional: no apparent distress Eyes: PERRL Ears, Nose, Mouth, Throat: moist mucous membranes Cardiovascular: regular rate and rhythym, no murmur, rub, or gallop Respiratory: rhonchi (Left base) Gastrointestinal: normoactive bowel sounds, soft, non-tender abdomen Genitourinary: no bladder fullness Skin: warm Musculoskeletal: full muscle strength (decreased strength LLE) Neurologic: AAOx3 Psychiatric: interacting appropriately ICD10 Worksheet Patient Problems: Problems Problem Status Onset Urinary retention due to benign prostatic hyperplasia Acute
[2016-04-16] MEDS: IRBESARTAN 150 MG TAB PO SCH (08:58)
[2016-04-16] MEDS: ROSUVASTATIN CALCIUM 10 MG TAB PO SCH (08:58)
[2016-04-16] MEDS: PANTOPRAZOLE SODIUM 40 MG TAB PO SCH (08:58)
[2016-04-16] MEDS: AZITHROMYCIN 250 MG TAB PO SCH (08:58)
[2016-04-16] MEDS: EZETIMIBE 10 MG TAB PO SCH (08:58)
[2016-04-16] MEDS: GABAPENTIN 300 MG CAP PO SCH ×3 (08:59→19:59)
[2016-04-16] MEDS: ISOSORBIDE DINITRATE 10 MG TAB PO SCH ×2 (08:59→14:42)
[2016-04-16] MEDS: METOPROLOL TARTRATE 50 MG TAB PO SCH ×2 (08:59→19:59)
[2016-04-16] MEDS: FOLIC ACID 1 MG TAB PO SCH (08:59)
[2016-04-16] MEDS: SENNOSIDES/DOCUSATE SODIUM TAB PO SCH ×2 (08:59→19:59)
[2016-04-16] MEDS: morphINE SR 30 MG TAB PO SCH ×2 (08:59→20:00)
--- NOTE | 2016-04-16 09:45 | SOAPPROG ---
SOAP Progress Note Assessment/Plan: Assessment: 1.) NSCLC, stage IV disease with extensive skeletal mets, on first line therapy with Carboplatin + Pemetrexed, Cycle 1, Day 6 today. Pt has extensive lumbar disease, causing pain. He did receive XRT to spine before first course of chemotherapy. 2.) LLL infiltrate, c/w pneumonia - on antibiotics. I encouraged patient to use the bedside Incentive Spirometer 3.) Hypoxemia 4.) COPD 5.) CAD, S/P placement of multiple intra-coronary art. stents 6.) L prox. femur lytic disease- at risk for path. Fx. In further discussion, Pt. and family seem to positively favor Orthopedic everardo stabilization if feasible and recommended. 7.) Pain control issues 8.) Mobility issues. Plan: 1.) Continue antibiotics, oxygen, supportive meds and analgesics. 2.) Orthopedic Surgery Consult to determine if patient needs and is a candidate for prophylactic L femur everardo stabilization. Discussed with patient and family at length. 04/16/16 09:45 Subjective: Pt. doing better, and reports no new sx. He had a solid meal last night and had a good BM also. No reports of fever/chills/resp. distress. Objective: VSS, Afebrile as reported here. Pt. in NAD, flat in bed, with family member @ bedside. Alert and conversant HEENT- pale, anicteric, no oral lesions Neck- supple Chest- clear anteriorly, bilaterally CVS- RSR, no extra HS, ABD- BS+, soft, NT no mass or HSM EXT- LE with SCD in place, minimal edema Labs as noted here: Hgb 11.6, WBC 5.34 Vital Signs Temp Pulse Resp BP Pulse Ox 36.9 C 64 18 166/72 H 100 04/16/16 07:31 04/16/16 07:31 04/16/16 07:31 04/16/16 07:31 04/16/16 07:31 Laboratory Results 04/15/16 05:36 04/15/16 05:36 04/15/16 04/16/16 04/17/16 05:59 05:59 05:59 Intake Total 200 1845 Output Total 1250 1075 250 Balance -1050 770 -250 PT 13.9 SEC (12.0-15.0) 04/14/16 06:00 INR 1.08 (0.83-1.16) 04/14/16 06:00 ICD10 Worksheet Patient Problems: Problems Problem Status Onset Urinary retention due to benign prostatic hyperplasia Acute
--- NOTE | 2016-04-16 11:22 | GCON ---
[f rep st] CONSULTATION INPATIENT CONSULT REPORT DATE OF CONSULTATION: 04/16/2016 REASON FOR CONSULTATION: Left leg pain. HISTORY OF PRESENT ILLNESS: The patient is an 80-year-old male with metastatic cancer that has appa rently seeded his left femur in addition to his spine. He was admitted for pain control due to left lower extremity pain. X-ray had revealed a lytic lesion in the proximal portion of his femur. I was asked to see the patient for possible prophylactic rodding of the left femur prior to it becom ing a full on pathologic fracture. PHYSICAL EXAMINATION: The patient remains neurologically intact distally to the dorsal, lateral and plantar portions of the foot. He has no pain to gentle log roll through the leg and he is able to painfully do a straight leg raise to extend his knee actively. IMAGING: X-ray exam reveals a lytic lesion centered around the lesser trochanter, but it does not a ppear to affect the cortices associated on the AP view, but affects the posterior cortices more on t he lateral view. ASSESSMENT: The patient is status post left proximal femur metastatic cancer. PLAN: Options were discussed with the patient and his family, and a long discussion was held discus sing the risks and benefits of surgery, understanding that the everardo will allow him to weight bear as tolerated, but will not affect the natural course of the metastatic tumor. It may relieve symptomat ology for a short period of time, but the tumor will continue to invade the bone and so the pain enrique l probably return, but the structural integrity should be maintained. Also, was warned that the pro cess of rodding the femur may seed the rest of the femur with regard to tumor cells, which could hav e an effect in the upcoming future. Due to him being on aspirin and Plavix, and taking approximatel y a week for the aspirin effects to dissipate and the 3-5 days for Plavix to dissipate, it was decid ed to wait given that metastatic tumors tend to bleed within the bone with any type of surgical fixa tion and to wait until he is able to adequately coagulate as much as possible prior to doing surgery . In discussion with Dr. Gloria and the patient's family, it was decided that Sunday may be the ear liest time to get this done. He will therefore be placed on the OR schedule for Sunday for a lef t-sided trochanteric femoral nail with plans to be able to rehab him aggressively afterwards, depend ing on his pain control. /[id number]/MODL
[2016-04-16] MEDS: MAG HYDROX/AL HYDROX/SIMETH 30 ML UDCUP PO PRN (14:38)
[2016-04-16] MEDS: ENOXAPARIN 40 MG/0.4 ML SYR SC SCH (17:29)
[2016-04-16] MEDS: FAMOTIDINE 20 MG TAB PO SCH (19:59)
[2016-04-17] MEDS: DEXAMETHASONE 4 MG/ML VIAL IVP SCH ×4 (05:33→23:32)
[2016-04-17 05:56] LABS: HEMATOCRIT 35.4 % (40.0-51.0); HEMOGLOBIN 11.2 g/dL (13.7-17.5); MEAN CELL HEMOGLOBIN 26.6 pg (27.9-34.1); MEAN CELL HEMOGLOBIN CONCENTR. 31.6 g/dL (32.4-36.7); MEAN CELL VOLUME 84.1 fL (81.5-99.8); RED BLOOD CELL COUNT 4.21 10^6/uL (4.40-6.38); RED CELL DISTRIBUTION WIDTH 17.4 % (11.5-15.2)
[2016-04-17 06:17] LABS: ANION GAP 2 mEq/L (8-16); CALCIUM 8.1 mg/dL (8.5-10.4); CARBON DIOXIDE 26 mEq/l (22-31); CHLORIDE 106 mEq/L (97-110); CREATININE 0.7 mg/dL (0.7-1.3); GLOMERULAR FILTRATION RATE > 60; GLUCOSE 104 mg/dL (70-100); POTASSIUM 4.9 mEq/L (3.5-5.2); SODIUM 134 mEq/L (134-144)
--- NOTE | 2016-04-17 07:54 | NEUSURGPN ---
Assessment/Plan: Assessment: 80 yo male that is admitted to IM with stage 4 lung cancer with pathologic fx of L5 as well as a left femur mets Plan: -pt has a compression fracture of L5 with some associated stenosis -Dr Tyson saw pt as well -Dr Turner to do a femoral everardo placement on Wed per his note -LE pain may not be due to the spine -NS defers to IM/onc as well as ortho for care of the femur issue -per reports Pt and family not interested in any spine surgery -please call NS with any changes or issues -warning signs given -call with any questions or concerns Subjective: Awake and alert. NAD. Eating/drinking and voiding. No f/c/n/v/d. No byers/neck/ chest/abd or gu complaints. Objective: AAO x 3, PERRLA/EOMI no droop CN 2-12 grossly intact +lt touch ELLIOT x 4 Neuro Check Frequency: per routine Urinary Catheter in Place: No - Physician Discussed Patient with .: Jah Patient Seen by .: Jah Neurosurgery Physical Exam - Vitals, I&O, Labs I and O 04/16/16 04/17/16 04/18/16 05:59 05:59 05:59 Intake Total 1845 2443 Output Total 1075 1110 Balance 770 1333 Intake: Oral (ml) 600 700 IV Intake (ml) 445 1743 IV Infused (ml) 800 Ns 1,000 ml @ 75 mls/hr 800 IV CONT JOSE ANGEL Rx#: [id number] Output: Urine (ml) 1075 1110 Urinal 1075 1110 Other: Number of Voids Diapers/Briefs 1 Urinal 2 1 Number of Stools Diapers/Briefs 1 Vital Signs Temp Pulse Resp BP Pulse Ox 36.4 C 47 L 18 160/79 H 97 04/17/16 04:21 04/17/16 04:21 04/17/16 04:21 04/17/16 04:21 04/17/16 04:21 Laboratory Results 04/17/16 05:20 04/17/16 05:20 ICD10 Worksheet Patient Problems: Problems Problem Status Onset Urinary retention due to benign prostatic hyperplasia Acute
[2016-04-17] MEDS: AZITHROMYCIN 250 MG TAB PO SCH (08:49)
[2016-04-17] MEDS: IRBESARTAN 150 MG TAB PO SCH (08:50)
[2016-04-17] MEDS: ISOSORBIDE DINITRATE 10 MG TAB PO SCH ×2 (08:51→15:21)
[2016-04-17] MEDS: EZETIMIBE 10 MG TAB PO SCH (08:51)
[2016-04-17] MEDS: FOLIC ACID 1 MG TAB PO SCH (08:51)
[2016-04-17] MEDS: ROSUVASTATIN CALCIUM 10 MG TAB PO SCH (08:52)
[2016-04-17] MEDS: SENNOSIDES/DOCUSATE SODIUM TAB PO SCH ×2 (08:53→21:19)
[2016-04-17] MEDS: PANTOPRAZOLE SODIUM 40 MG TAB PO SCH (08:53)
[2016-04-17] MEDS: morphINE SR 30 MG TAB PO SCH ×2 (08:53→21:19)
[2016-04-17] MEDS: ENOXAPARIN 40 MG/0.4 ML SYR SC SCH (08:55)
[2016-04-17] MEDS: GABAPENTIN 300 MG CAP PO SCH ×4 (08:55→21:19)
--- NOTE | 2016-04-17 08:57 | HOSPPROG ---
Hospitalist Progress Note Assessment/Plan: #Acute left leg pain: femur lytic lesion (new from MRI Dec) -pain well controlled on IV steroids and MS Contin. -I discussed case with Dr. Turner and family; plan for intratrochanteric nail for Wed 04/19. Holding ASA, Plavix -non-weight bearing #L4-5 compression fracture: NSGY evaluated. Opt for conservative management given extensive surgery warrants to stabilize spine. NSGY team to address family 's questions today #Metastatic lung adenocarcinoma -recent XRT to lumbar/sacrum, recent chemo. Next chemo tentatively for 05/01/16 #CAD: cont ASA, statin. Hold Plavix/ASA for ortho procedure next week #LLL PNA: (opacity on CXR, reviewed by me) Day 3 Azithro/CTX. #Acute hypoxemic resp failure: due to PNA and atelectasis. Abx and incentive spirometry #Diet: regular #DVT ppx: Lovenox; will hold prior to surgery #Goals: family and pt agree to ortho procedure. They have much concerns with spinal stability. Cont discussions on DC plan whether home vs. SNF. Family accepts palliative care consult; SW assisting Subjective: having BMs, cough improved Objective: Vital Signs Temp Pulse Resp BP Pulse Ox 36.4 C 47 L 18 158/76 H 97 04/17/16 04:21 04/17/16 04:21 04/17/16 04:21 04/17/16 08:51 04/17/16 04:21 Laboratory Results 04/17/16 05:20 04/17/16 05:20 04/16/16 04/17/16 04/18/16 05:59 05:59 05:59 Intake Total 1845 2443 Output Total 1075 1110 Balance 770 1333 PT 13.9 SEC (12.0-15.0) 04/14/16 06:00 INR 1.08 (0.83-1.16) 04/14/16 06:00 - Physical Exam Constitutional: no apparent distress Eyes: PERRL Cardiovascular: regular rate and rhythym Respiratory: no respiratory distress, other (less crackles LL base) Gastrointestinal: normoactive bowel sounds, soft, non-tender abdomen Genitourinary: no bladder fullness Skin: warm Musculoskeletal: other (decreased strenght LLE. No point TTP) Neurologic: AAOx3, CN II-XII Intact Psychiatric: interacting appropriately ICD10 Worksheet Patient Problems: Problems Problem Status Onset Urinary retention due to benign prostatic hyperplasia Acute
[2016-04-17] MEDS: METOPROLOL TARTRATE 50 MG TAB PO SCH ×2 (08:58→21:18)
--- NOTE | 2016-04-17 11:07 | SOAPPROG ---
JARRETT Progress Note Assessment/Plan: Assessment: 1.) NSCLC, stage IV disease with extensive skeletal mets, on first line therapy with Carboplatin + Pemetrexed, Cycle 1, Day 8 today. Pt has extensive lumbar disease, causing pain. He did receive XRT to spine before first course of chemotherapy. His next treatment (C2D1) is tentatively due on 05/01/2016. 2.) LLL infiltrate, c/w pneumonia - on antibiotics. Cough is producing sputum. 3.) Hypoxemia 4.) COPD 5.) CAD, S/P placement of multiple intra-coronary art. stents 6.) L prox. femur lytic disease- at risk for path. Fx. Plan is for an intramedullary nail on Sunday. 7.) Pain control issues - adequate control on current regimen 8.) Mobility issues. Plan: 1.) Continue antibiotics, oxygen, supportive meds and analgesics. 2.) OR planned on 04/19/2016 3.) Next chemo tentatively on 05/01/2016 Subjective: He feels like his pain is under adequate control. Objective: Vital Signs Temp Pulse Resp BP Pulse Ox 36.9 C 54 L 18 158/76 H 97 04/17/16 09:12 04/17/16 08:58 04/17/16 04:21 04/17/16 08:58 04/17/16 04:21 Laboratory Results 04/17/16 05:20 04/17/16 05:20 04/15/16 04/16/16 04/17/16 23:59 23:59 23:59 Intake Total 1245 2285 958 Output Total 875 1425 585 Balance 370 860 373 PT 13.9 SEC (12.0-15.0) 04/14/16 06:00 INR 1.08 (0.83-1.16) 04/14/16 06:00 Physical Exam - Physical Exam General Appearance: alert, mild distress Respiratory: lungs clear Cardiac/Chest: regular rate, rhythm Abdomen: normal bowel sounds Neuro/Psych: normal mood/affect, oriented x 3 ICD10 Worksheet Patient Problems: Problems Problem Status Onset Urinary retention due to benign prostatic hyperplasia Acute
[2016-04-17] MEDS: NS 1,000 ML IV SCH (15:19)
[2016-04-17] MEDS: FAMOTIDINE 20 MG TAB PO SCH (21:19)
[2016-04-18] MEDS: DEXAMETHASONE 4 MG/ML VIAL IVP SCH ×3 (05:23→17:39)
[2016-04-18] MEDS: ISOSORBIDE DINITRATE 10 MG TAB PO SCH ×2 (07:55→15:24)
[2016-04-18] MEDS: GABAPENTIN 300 MG CAP PO SCH ×3 (07:56→22:25)
[2016-04-18] MEDS: IRBESARTAN 150 MG TAB PO SCH (08:12)
[2016-04-18] MEDS: MAG HYDROX/AL HYDROX/SIMETH 30 ML UDCUP PO PRN ×3 (08:23→22:37)
[2016-04-18] MEDS: morphINE SR 30 MG TAB PO SCH ×2 (08:30→22:25)
--- NOTE | 2016-04-18 08:58 | SOAPPROG ---
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 Pt has extensive lumbar disease, causing pain. He did receive XRT to spine before first course of chemotherapy. His next treatment (C2D1) is tentatively due on 05/01/2016. 2.) LLL infiltrate, c/w pneumonia - on antibiotics. Cough is producing sputum. 3.) Hypoxemia 4.) COPD 5.) CAD, S/P placement of multiple intra-coronary art. stents 6.) L prox. femur lytic disease- at risk for path. Fx. Plan is for an intramedullary nail tomorrow 04/19/16. 7.) Pain control issues - adequate control on current regimen 8.) Mobility issues. 9.) Constipation Plan: 1.) Continue antibiotics, oxygen, supportive meds and analgesics. 2.) OR planned on 04/19/2016 3.) Next chemo tentatively on 05/01/2016 Subjective: Pain is under adequate control. Constipated. Waiting for stool softener to work. Objective: Vital Signs Temp Pulse Resp BP Pulse Ox 37.6 C 55 L 14 141/70 H 96 04/18/16 08:44 04/18/16 08:44 04/18/16 08:44 04/18/16 08:44 04/18/16 08:44 Laboratory Results 04/17/16 05:20 04/17/16 05:20 04/16/16 04/17/16 04/18/16 23:59 23:59 23:59 Intake Total 2285 2418 992 Output Total 1425 585 550 Balance 860 1833 442 PT 13.9 SEC (12.0-15.0) 04/14/16 06:00 INR 1.08 (0.83-1.16) 04/14/16 06:00 Physical Exam - Physical Exam Respiratory: rhonchi (R anterior lung field) Abdomen: normal bowel sounds Neuro/Psych: normal mood/affect, oriented x 3 ICD10 Worksheet Patient Problems: Problems Problem Status Onset Urinary retention due to benign prostatic hyperplasia Acute
[2016-04-18] MEDS: ROSUVASTATIN CALCIUM 10 MG TAB PO SCH (09:10)
[2016-04-18] MEDS: AZITHROMYCIN 250 MG TAB PO SCH (09:11)
[2016-04-18] MEDS: SENNOSIDES/DOCUSATE SODIUM TAB PO SCH ×2 (09:11→22:26)
[2016-04-18] MEDS: FOLIC ACID 1 MG TAB PO SCH (09:11)
[2016-04-18] MEDS: EZETIMIBE 10 MG TAB PO SCH (09:12)
[2016-04-18] MEDS: ENOXAPARIN 40 MG/0.4 ML SYR SC SCH (09:12)
[2016-04-18] MEDS: PANTOPRAZOLE SODIUM 40 MG TAB PO SCH (09:14)
[2016-04-18] MEDS: METOPROLOL TARTRATE 50 MG TAB PO SCH ×2 (10:09→22:25)
--- NOTE | 2016-04-18 13:40 | SOAPPROG ---
JARRETT Progress Note Assessment/Plan: Assessment: Plan: Will be put on for TFN of L hip tomorrow 04/19/16 - NPO after midnight tonight 04/18/16 13:38 Subjective: Doing well Objective: Vital Signs Temp Pulse Resp BP Pulse Ox 37.6 C 64 14 119/52 L 96 04/18/16 08:44 04/18/16 10:09 04/18/16 08:44 04/18/16 10:09 04/18/16 08:44 Laboratory Results 04/17/16 05:20 04/17/16 05:20 04/17/16 04/18/16 04/19/16 05:59 05:59 05:59 Intake Total 2443 2452 120 Output Total 1110 700 200 Balance 1333 1752 -80 PT 13.9 SEC (12.0-15.0) 04/14/16 06:00 INR 1.08 (0.83-1.16) 04/14/16 06:00 Calf soft NVI, - Pending Discharge Pending Discharge Within 48 Hours: No ICD10 Worksheet Patient Problems: Problems Problem Status Onset Urinary retention due to benign prostatic hyperplasia Acute
--- NOTE | 2016-04-18 16:35 | HOSPPROG ---
Hospitalist Progress Note Assessment/Plan: 80 yo M w metastatic lung cancer and CAP Acute left leg pain: femur lytic lesion (new from MRI Dec) -pain well controlled on IV steroids and MS Contin. - plan for intratrochanteric nail for Wed 04/19. Holding ASA, Plavix -non-weight bearing L4-5 compression fracture: NSGY evaluated. Opt for conservative management given extensive surgery warrants to stabilize spine. NSGY team to address family 's questions today Metastatic lung adenocarcinoma -recent XRT to lumbar/sacrum, recent chemo. Next chemo tentatively for 05/01/16 CAD: cont ASA, statin. Hold Plavix/ASA for ortho procedure next week LLL PNA: (opacity on CXR, reviewed by me) Day 4 Azithro/CTX. Acute hypoxemic resp failure: due to PNA and atelectasis. Abx and incentive spirometry Diet: regular DVT ppx: Lovenox; will hold prior to surgery Goals: family and pt agree to ortho procedure. They have much concerns with spinal stability. Cont discussions on DC plan whether home vs. SNF. Family accepts palliative care consult; SW assisting Subjective: pain well controlled Objective: Vital Signs Temp Pulse Resp BP Pulse Ox 37.4 C 64 14 146/72 H 96 04/18/16 16:31 04/18/16 10:09 04/18/16 08:44 04/18/16 15:25 04/18/16 08:44 Laboratory Results 04/17/16 05:20 04/17/16 05:20 04/17/16 04/18/16 04/19/16 05:59 05:59 05:59 Intake Total 2443 2452 620 Output Total 1110 700 350 Balance 1333 1752 270 PT 13.9 SEC (12.0-15.0) 04/14/16 06:00 INR 1.08 (0.83-1.16) 04/14/16 06:00 - Physical Exam Constitutional: no apparent distress, appears nourished Eyes: PERRL, anicteric sclera Ears, Nose, Mouth, Throat: moist mucous membranes, hearing normal Cardiovascular: regular rate and rhythym, no murmur, rub, or gallop Respiratory: no respiratory distress, no rales or rhonchi Gastrointestinal: normoactive bowel sounds, soft, non-tender abdomen Genitourinary: no bladder fullness, No hillman in urethra Skin: warm, normal color Musculoskeletal: full muscle strength, no muscle tenderness Neurologic: AAOx3 Psychiatric: interacting appropriately ICD10 Worksheet Patient Problems: Problems Problem Status Onset Urinary retention due to benign prostatic hyperplasia Acute
[2016-04-18] MEDS: NS 1,000 ML IV SCH (22:25)
[2016-04-18] MEDS: FAMOTIDINE 20 MG TAB PO SCH (22:25)
[2016-04-19] MEDS: DEXAMETHASONE 4 MG/ML VIAL IVP SCH ×4 (02:36→21:11)
[2016-04-19] MEDS: ISOSORBIDE DINITRATE 10 MG TAB PO SCH ×2 (06:33→14:33)
[2016-04-19] MEDS: ROSUVASTATIN CALCIUM 10 MG TAB PO SCH (07:52)
[2016-04-19] MEDS: SENNOSIDES/DOCUSATE SODIUM TAB PO SCH ×2 (07:53→21:11)
[2016-04-19] MEDS: AZITHROMYCIN 250 MG TAB PO SCH (07:54)
[2016-04-19] MEDS: GABAPENTIN 300 MG CAP PO SCH ×3 (07:55→22:34)
[2016-04-19] MEDS: PANTOPRAZOLE SODIUM 40 MG TAB PO SCH (07:56)
[2016-04-19] MEDS: morphINE SR 30 MG TAB PO SCH ×2 (07:56→21:11)
[2016-04-19] MEDS: FOLIC ACID 1 MG TAB PO SCH (07:56)
[2016-04-19] MEDS: IRBESARTAN 150 MG TAB PO SCH (07:56)
[2016-04-19] MEDS: EZETIMIBE 10 MG TAB PO SCH (07:57)
--- NOTE | 2016-04-19 10:18 | SOAPPROG ---
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 Pt has extensive lumbar disease, causing pain. He did receive XRT to spine before first course of chemotherapy. His next treatment (C2D1) is tentatively due on 05/01/2016. I'll order a CBC today pre-op. 2.) LLL infiltrate, c/w pneumonia - on antibiotics. Cough is producing sputum. 3.) Hypoxemia 4.) COPD 5.) CAD, S/P placement of multiple intra-coronary art. stents 6.) L prox. femur lytic disease- at risk for path. Fx. Plan is for an intramedullary nail today 04/19/16. 7.) Pain control issues - adequate control on current regimen 8.) Mobility issues. 9.) Constipation Plan: 1.) Continue antibiotics, oxygen, supportive meds and analgesics. 2.) OR planned on 04/19/2016 3.) Next chemo tentatively on 05/01/2016. I reassured him that we would continue to follow him post op and arrange for chemo at the appropriate time and location. 4.) Check CBC today Subjective: No new physical complaints. Concerned about logistics of continuing chemo post surgery Objective: Vital Signs Temp Pulse Resp BP Pulse Ox 36.6 C 56 L 14 145/72 H 98 04/19/16 08:27 04/19/16 08:27 04/19/16 08:27 04/19/16 08:27 04/19/16 08:27 Laboratory Results 04/17/16 05:20 04/17/16 05:20 04/17/16 04/18/16 04/19/16 23:59 23:59 23:59 Intake Total 2418 2532 758 Output Total 716 543 2975 Balance 1833 1682 -282 PT 13.9 SEC (12.0-15.0) 04/14/16 06:00 INR 1.08 (0.83-1.16) 04/14/16 06:00 Physical Exam - Physical Exam General Appearance: mild distress Respiratory: rhonchi (scattered) Cardiac/Chest: regular rate, rhythm Abdomen: normal bowel sounds Neuro/Psych: normal mood/affect, oriented x 3 ICD10 Worksheet Patient Problems: Problems Problem Status Onset Urinary retention due to benign prostatic hyperplasia Acute
[2016-04-19] MEDS: METOPROLOL TARTRATE 50 MG TAB PO SCH ×2 (10:28→21:12)
[2016-04-19 11:18] LABS: % IMMATURE GRANULYOCYTES 1.4 % (0.0-1.1); ABSOLUTE IMMATURE GRANULOCYTES 0.03 10^3/uL (0.00-0.10); ADD DIFF? NO; ADD MORPH? NO; ADD SCAN? NO; ATYPICAL LYMPHOCYTE FLAG 30 (0-99); FRAGMENT RBC FLAG 0 (0-99); HEMATOCRIT 32.3 % (40.0-51.0); HEMOGLOBIN 10.4 g/dL (13.7-17.5); LEFT SHIFT FLG 10 (0-99); LIPEMIA HEMOLYSIS FLAG 80 (0-99); MEAN CELL HEMOGLOBIN 26.9 pg (27.9-34.1); MEAN CELL HEMOGLOBIN CONCENTR. 32.2 g/dL (32.4-36.7); MEAN CELL VOLUME 83.7 fL (81.5-99.8); PLATELET CLUMPS FLAG 0 (0-99); PLATELET COUNT 95 10^3/uL (150-400); RED BLOOD CELL COUNT 3.86 10^6/uL (4.40-6.38); RED CELL DISTRIBUTION WIDTH 17.1 % (11.5-15.2)
[2016-04-19] MEDS: NS 1,000 ML IV SCH (11:54)
[2016-04-19] MEDS ORDERED: BACITRACIN 50,000 UNITS/10 ML SYR IRR ONE (14:52)
[2016-04-19] MEDS ORDERED: POLYMYXIN B SULFATE 500,000 UNIT/10 ML SYR IRR ONE (14:52)
[2016-04-19] MEDS ORDERED: BUPIVACAINE 0.5% 30 ML SDV ONE (14:52)
--- NOTE | 2016-04-19 15:15 | HOSPPROG ---
Hospitalist Progress Note Assessment/Plan: 80 yo M w metastatic lung cancer and CAP Acute left leg pain: femur lytic lesion (new from MRI Dec) -pain well controlled on IV steroids and MS Contin. wean steroids after OR - plan for intratrochanteric nail for Wed 04/19. Holding ASA, Plavix -non-weight bearing L4-5 compression fracture: NSGY evaluated. Opt for conservative management given extensive surgery warrants to stabilize spine. NSGY team to address family 's questions today Metastatic lung adenocarcinoma -recent XRT to lumbar/sacrum, recent chemo. Next chemo tentatively for 05/01/16 CAD: cont ASA, statin. Hold Plavix/ASA for ortho procedure next week LLL PNA: (opacity on CXR, reviewed by me) Day 4 Azithro/CTX. Acute hypoxemic resp failure: due to PNA and atelectasis. Abx and incentive spirometry Diet: regular DVT ppx: Lovenox; will hold prior to surgery Goals: family and pt agree to ortho procedure. They have much concerns with spinal stability. Cont discussions on DC plan whether home vs. SNF. Family accepts palliative care consult; SW assisting Subjective: to OR today Objective: Vital Signs Temp Pulse Resp BP Pulse Ox 36.6 C 56 L 14 152/73 H 98 04/19/16 08:27 04/19/16 08:27 04/19/16 08:27 04/19/16 15:06 04/19/16 08:27 Laboratory Results 04/19/16 11:10 04/17/16 05:20 04/18/16 04/19/16 04/20/16 05:59 05:59 05:59 Intake Total 2452 1540 758 Output Total 700 1050 740 Balance 1752 490 18 PT 13.9 SEC (12.0-15.0) 04/14/16 06:00 INR 1.08 (0.83-1.16) 04/14/16 06:00 - Physical Exam Constitutional: no apparent distress, appears nourished Eyes: PERRL, anicteric sclera Ears, Nose, Mouth, Throat: moist mucous membranes, hearing normal Cardiovascular: regular rate and rhythym, no murmur, rub, or gallop Respiratory: no respiratory distress, no rales or rhonchi Gastrointestinal: normoactive bowel sounds, soft, non-tender abdomen Genitourinary: No hillman in urethra Skin: warm, normal color Musculoskeletal: full muscle strength Neurologic: AAOx3 ICD10 Worksheet Patient Problems: Problems Problem Status Onset Urinary retention due to benign prostatic hyperplasia Acute
[2016-04-19] MEDS ORDERED: LIDOCAINE 1% 5 ML SDV ONE (15:25)
[2016-04-19] MEDS ORDERED: fentaNYL 100 MCG/2 ML INJ ONE ×4 (16:45→19:13)
[2016-04-19] MEDS ORDERED: PROPOFOL 200 MG/20 ML VIAL ONE (16:47)
[2016-04-19] MEDS ORDERED: HYDROCODONE/APAP 5/325 TAB PO PRN (18:30)
[2016-04-19] MEDS ORDERED: OXYCODONE/APAP 5/325 TAB PO PRN (18:30)
--- NOTE | 2016-04-19 18:30 | POSTOPPROG ---
Post Op Note Date of Operation: 04/19/16 Surgeon: Rita Turner Property Preservation Specialist: coltrain Anesthesiologist: warm Anesthesia: GET(General Endotracheal) Pre-op Diagnosis: l hip tumor Procedure: l hip tfn with fluoro Inf/Abcess present in the surg proc area at time of surgery?: No Depth: Deep Incisional (Fascial) EBL: 100-500
--- NOTE | 2016-04-19 19:14 | GOP ---
DATE OF OPERATION: 04/19/2016 SURGEON: Rita Turner MD MANUFACTURING AUTOMATION ENGINEER: JENNIFFER Choudhury LSA, whose presence was medically necessary. ANESTHESIA: Endotracheal intubation. PREOPERATIVE DIAGNOSIS: Left hip metastatic tumor. POSTOPERATIVE DIAGNOSIS: Left hip metastatic tumor. PROCEDURE PERFORMED: Left hip TFN with fluoroscopy. FINDINGS: INDICATIONS: This is an 80-year-old male with known metastatic cancer. He has had a painful lesion in his leg. X-ray exam reveals a lytic lesion in the proximal portion of his femur. After a long discussion with the family and the patient, it was decided that prophylactic rodding would protect h im instead of waiting for the fracture to break for fixing something. He was anticoagulated and, th erefore, it was waited until the aspirin and the Plavix that he had been taking had been eliminated from the system before doing surgery. DESCRIPTION OF PROCEDURE: Patient brought to the operating room after the left side had been identi fied as the correct side by the patient, nurse and physician. Once in the operating room, he was pl aced under general anesthesia using endotracheal intubation. Once asleep, he was placed on a tracti on table with a well-padded peroneal post and both legs were placed in appropriate leg sarmiento. The left hip and flank were sterilely prepped and draped in the usual fashion using GSI solution. Once prepped and draped, fluoroscopy was used to find the entry point and angulature of the femoral neck and the greater trochanter and also the distal extent of the knee. Once this was marked on the drap es, an incision was made directly above the greater trochanter with sharp dissection carried down th rough the skin and subcutaneous layers and through the fascia overlying the gluteus. Blunt dissecti on was carried down over the greater trochanter. A guidewire was placed on the greater trochanter w ith the use of fluoroscopy. It was driven into the femur. Its position was checked on AP and later al projections, noted to be in good position. A cannulated awl was placed over the guidewire with t he bone reamed over this area using the awl by hand in order to widen the canal. Once this had been done, a long guidewire was placed in the femur. Its position was checked on AP and lateral project ions to ensure proper placement within the femoral canal. Sequential reamers were used starting at an end-cutting reamer and extending up to 13 mm before getting any chatter onto the midportion of th e femur. The wires measured to be 420 mm long. Therefore, a 420 x 12 mm trochanteric femoral nail from [employer] was placed onto an insertion device. It was then driven over the guidewire into the di stal femur. Once in proper position, its position was checked under fluoroscopy. Once adequately s unk into its proper position, the guidewire was removed. Outrigger was placed onto the insertion de vice. An incision was made on the lateral portion of the thigh, based on the position of the outrig victor manuel. Sharp dissection carried down through the skin, subcutaneous layers, through the tensor fascia vicki and onto the bone itself. Once the outrigger or the triflange nail guide was put into place, guidewire was passed through it. The guidewire's position was checked on AP and lateral projections using fluoroscopy. Once noted to be in proper position, it was measured to be 100 mm in length. T herefore, cortical cutting guide was passed over the guidewire and then the graduated drill was pass ed through over the guidewire also into position, and then the 100 mm triflange screw was passed ove r the guidewire and into the proximal femur and into the femoral head. Once in the femoral head, th e locking screw was engaged in the proximal portion of the TFN, at which point the outrigger and the insertion device for the TFN was removed. The leg was then brought into adduction. Fluoroscopy wa s then brought to the distal femur in order to gain perfect circles of the distal portion of the everardo . Once perfect circles were able to be obtained, an incision was made directly over the lateral por tion of the thigh with sharp dissection carried down through the skin and subcutaneous layers, throu gh the IT band and onto the bone. With the use of fluoroscopy, a drill hole was made through the la teral cortex through the everardo, exiting the medial cortex, and a 42 mm distal locking screw was put in to place. Its position was checked on AP and lateral projections. Once completed, all 3 wounds wer e thoroughly irrigated with antibiotic solution and were closed in layers to include 0 Vicryl suture for the deep fascial layers, 2-0 Vicryl suture for the subcutaneous layers and pio for the skin . The wounds were dressed with Xeroform, 4 x 4, and Tegaderm. He was completely undraped in the op erating room. Both legs were taken out of their appropriate leg holders. Peroneal post was removed . He was then woken up, extubated, and transferred onto a stretcher, and sent to recovery room in g ood condition. /[id number]/MODL
[2016-04-19] MEDS ORDERED: HYDROmorphONE/DILAUDID 1 MG/ML SYR ONE (19:19)
[2016-04-19] MEDS: oxyCODONE IR 5 MG TAB PO PRN (19:58)
[2016-04-19] MEDS: FAMOTIDINE 20 MG TAB PO SCH (21:12)
[2016-04-19] MEDS: HYDROmorphONE/DILAUDID 1 MG/ML SYR IVP PRN (21:12)
[2016-04-19] MEDS: D5W 1/2 NS W/ 20 KCl/L 1,000 ML IV SCH (21:13)
[2016-04-20] MEDS: ACETAMINOPHEN 325 MG TAB PO SCH ×5 (01:36→18:22)
[2016-04-20] MEDS: traMADol 50 MG TAB PO SCH ×4 (01:43→18:22)
[2016-04-20 05:38] LABS: HEMATOCRIT 24.8 % (40.0-51.0); HEMOGLOBIN 7.9 g/dL (13.7-17.5)
[2016-04-20] MEDS: ROSUVASTATIN CALCIUM 10 MG TAB PO SCH (08:26)
[2016-04-20] MEDS: morphINE SR 30 MG TAB PO SCH ×2 (08:26→21:35)
[2016-04-20] MEDS: EZETIMIBE 10 MG TAB PO SCH (08:26)
[2016-04-20] MEDS: IRBESARTAN 150 MG TAB PO SCH (08:26)
[2016-04-20] MEDS: GABAPENTIN 300 MG CAP PO SCH ×3 (08:26→21:35)
[2016-04-20] MEDS: FOLIC ACID 1 MG TAB PO SCH (08:26)
[2016-04-20] MEDS: DEXAMETHASONE 4 MG/ML VIAL IVP SCH ×2 (08:27→21:35)
[2016-04-20] MEDS: AZITHROMYCIN 250 MG TAB PO SCH (08:27)
[2016-04-20] MEDS: PANTOPRAZOLE SODIUM 40 MG TAB PO SCH (08:27)
[2016-04-20] MEDS: SENNOSIDES/DOCUSATE SODIUM TAB PO SCH ×2 (08:27→21:35)
[2016-04-20] MEDS: ISOSORBIDE DINITRATE 10 MG TAB PO SCH ×2 (08:39→16:24)
[2016-04-20] MEDS: METOPROLOL TARTRATE 50 MG TAB PO SCH (08:39)
--- NOTE | 2016-04-20 09:36 | SOAPPROG ---
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 Pt has extensive lumbar disease, causing pain. He did receive XRT to spine before first course of chemotherapy. His next treatment (C2D1) is tentatively due on 05/01/2016. Hgb down to 7.9 post op. Will not transfuse today, but will check CBC in the AM. 2.) LLL infiltrate, c/w pneumonia - on antibiotics. Cough is producing sputum. 3.) Hypoxemia 4.) COPD 5.) CAD, S/P placement of multiple intra-coronary art. stents 6.) L prox. femur lytic disease- at risk for path. Fx. Today is POD #1 after intramedullary nail placement. 7.) Pain control issues - adequate control on current regimen 8.) Mobility issues. 9.) Constipation Plan: 1.) Continue antibiotics, oxygen, supportive meds and analgesics. 2.) Post-op care per Dr. Turner 3.) Next chemo tentatively on 05/01/2016. I reassured him that we would continue to follow him post op and arrange for chemo at the appropriate time and location. 4.) Re check CBC in AM 04/20/16 09:36 Subjective: No new complaints today. Denies pain. Objective: Vital Signs Temp Pulse Resp BP Pulse Ox 36.8 C 51 L 17 115/54 L 99 04/20/16 08:00 04/20/16 08:00 04/20/16 08:00 04/20/16 08:00 04/20/16 08:00 Laboratory Results 04/20/16 04:48 04/17/16 05:20 04/18/16 04/19/16 04/20/16 23:59 23:59 23:59 Intake Total 2532 2308 Output Total 850 1540 400 Balance 1682 768 -400 PT 13.9 SEC (12.0-15.0) 04/14/16 06:00 INR 1.08 (0.83-1.16) 04/14/16 06:00 Physical Exam - Physical Exam General Appearance: no apparent distress Respiratory: No crackles, No rhonchi Cardiac/Chest: regular rate, rhythm Abdomen: normal bowel sounds Skin: pallor Neuro/Psych: normal mood/affect ICD10 Worksheet Patient Problems: Problems Problem Status Onset Urinary retention due to benign prostatic hyperplasia Acute
[2016-04-20] MEDS: HYDROmorphONE/DILAUDID 1 MG/ML SYR IVP PRN (12:43)
--- NOTE | 2016-04-20 14:12 | HOSPPROG ---
Hospitalist Progress Note Assessment/Plan: 80 yo M w metastatic lung cancer and CAP Acute left leg pain: femur lytic lesion (new from MRI Jan), s/p intratrochanteric nail 04/19 -pain well controlled on IV steroids and MS Contin. wean steroids soon - Holding ASA, Plavix -non-weight bearing L4-5 compression fracture: NSGY evaluated. Opt for conservative management given extensive surgery warrants to stabilize spine. NSGY team to address family 's questions today Metastatic lung adenocarcinoma -recent XRT to lumbar/sacrum, recent chemo. Next chemo tentatively for 05/01/16 CAD: cont ASA, statin. Hold Plavix/ASA for ortho procedure next week LLL PNA: (opacity on CXR, reviewed by me) Day 5 Azithro/CTX. Acute hypoxemic resp failure: due to PNA and atelectasis. Abx and incentive spirometry. Will recheck CXR in a.m. HTN & slight Bradycardia: will decrease scheduled Metoprolol Post Operative Anemia: check hgb in a.m., transfuse as needed Diet: regular DVT ppx: Lovenox S: Pain well controlled Still on 2 Liters O2 O: VS reviewed NAD MMM RRR DECREASED BS NO EDEMA Objective: Vital Signs Temp Pulse Resp BP Pulse Ox 36.7 C 58 L 18 106/48 L 95 04/20/16 11:48 04/20/16 11:48 04/20/16 11:48 04/20/16 11:48 04/20/16 11:48 Laboratory Results 04/20/16 04:48 04/17/16 05:20 04/19/16 04/20/16 04/21/16 05:59 05:59 05:59 Intake Total 1540 2308 Output Total 1050 1340 Balance 490 968 PT 13.9 SEC (12.0-15.0) 04/14/16 06:00 INR 1.08 (0.83-1.16) 04/14/16 06:00 ICD10 Worksheet Patient Problems: Problems Problem Status Onset Urinary retention due to benign prostatic hyperplasia Acute
[2016-04-20] MEDS: D5W 1/2 NS W/ 20 KCl/L 1,000 ML IV SCH (16:28)
[2016-04-20] MEDS: FAMOTIDINE 20 MG TAB PO SCH (21:35)
[2016-04-20] MEDS: METOPROLOL TARTRATE 25 MG TAB PO SCH (21:37)
[2016-04-21] MEDS: ACETAMINOPHEN 325 MG TAB PO SCH ×5 (01:34→23:54)
[2016-04-21] MEDS: traMADol 50 MG TAB PO SCH ×5 (01:37→23:54)
[2016-04-21] MEDS: D5W 1/2 NS W/ 20 KCl/L 1,000 ML IV SCH (05:00)
[2016-04-21 05:37] LABS: HEMATOCRIT 23.2 % (40.0-51.0); HEMOGLOBIN 7.5 g/dL (13.7-17.5)
[2016-04-21 06:11] LABS: ANION GAP 3 mEq/L (8-16); CALCIUM 7.7 mg/dL (8.5-10.4); CARBON DIOXIDE 25 mEq/l (22-31); CHLORIDE 109 mEq/L (97-110); CREATININE 1.1 mg/dL (0.7-1.3); GLOMERULAR FILTRATION RATE > 60; GLUCOSE 118 mg/dL (70-100); POTASSIUM 4.8 mEq/L (3.5-5.2); SODIUM 137 mEq/L (134-144)
--- NOTE | 2016-04-21 08:14 | SOAPPROG ---
SOAP Progress Note Assessment/Plan: Assessment: Plan: POD 2 - WBAT, dressing was changed yesterday, may shower with dressing - plan is to see in office in 2 weeks for xrays and remove sutures - can start home PT if pt wants - can d/c from ortho perspective 04/18/16 13:38 04/21/16 08:11 04/21/16 08:14 Subjective: Doing well day 2 s/p TFN L hip. No issues. Objective: Vital Signs Temp Pulse Resp BP Pulse Ox 36.4 C 62 16 118/52 L 96 04/21/16 03:32 04/21/16 03:32 04/21/16 03:32 04/21/16 03:32 04/21/16 03:32 Laboratory Results 04/21/16 04:32 04/21/16 04:32 04/20/16 04/21/16 04/22/16 05:59 05:59 05:59 Intake Total 2308 2300 Output Total 1340 550 Balance 968 1750 PT 13.9 SEC (12.0-15.0) 04/14/16 06:00 INR 1.08 (0.83-1.16) 04/14/16 06:00 Dressing CDI, no drainage, compartments are soft, calf NT, neg Homman's, NVI distally - Time Spent With Patient Time Spent With Patient: 10 - Pending Discharge Pending Discharge Within 24 Hours: No Pending Discharge Within 48 Hours: No ICD10 Worksheet Patient Problems: Problems Problem Status Onset Urinary retention due to benign prostatic hyperplasia Acute
[2016-04-21] MEDS: METOPROLOL TARTRATE 25 MG TAB PO SCH ×2 (09:15→21:31)
[2016-04-21] MEDS: SENNOSIDES/DOCUSATE SODIUM TAB PO SCH ×2 (09:15→21:46)
[2016-04-21] MEDS: FOLIC ACID 1 MG TAB PO SCH (09:15)
[2016-04-21] MEDS: DEXAMETHASONE 4 MG/ML VIAL IVP SCH (09:15)
[2016-04-21] MEDS: IRBESARTAN 150 MG TAB PO SCH (09:15)
[2016-04-21] MEDS: PANTOPRAZOLE SODIUM 40 MG TAB PO SCH (09:15)
[2016-04-21] MEDS: AZITHROMYCIN 250 MG TAB PO SCH (09:16)
[2016-04-21] MEDS: ROSUVASTATIN CALCIUM 10 MG TAB PO SCH (09:16)
[2016-04-21] MEDS: GABAPENTIN 300 MG CAP PO SCH ×3 (09:16→21:30)
[2016-04-21] MEDS: EZETIMIBE 10 MG TAB PO SCH (09:16)
[2016-04-21] MEDS: morphINE SR 30 MG TAB PO SCH ×2 (09:16→21:31)
[2016-04-21 09:57] LABS: % IMMATURE GRANULYOCYTES 0.6 % (0.0-1.1); ABSOLUTE IMMATURE GRANULOCYTES 0.02 10^3/uL (0.00-0.10); ADD DIFF? NO; ADD MORPH? NO; ADD SCAN? NO; ATYPICAL LYMPHOCYTE FLAG 20 (0-99); FRAGMENT RBC FLAG 0 (0-99); HEMATOCRIT 23.9 % (40.0-51.0); HEMOGLOBIN 7.5 g/dL (13.7-17.5); LEFT SHIFT FLG 20 (0-99); LIPEMIA HEMOLYSIS FLAG 80 (0-99); MEAN CELL HEMOGLOBIN 27.1 pg (27.9-34.1); MEAN CELL HEMOGLOBIN CONCENTR. 31.4 g/dL (32.4-36.7); MEAN CELL VOLUME 86.3 fL (81.5-99.8); PLATELET CLUMPS FLAG 0 (0-99); RED BLOOD CELL COUNT 2.77 10^6/uL (4.40-6.38)
[2016-04-21 10:06] LABS: PLATELET COUNT 45 10^3/uL (150-400)
[2016-04-21 11:03] LABS: PLATELET ESTIMATE DECREASED (ADEQ)
[2016-04-21] MEDS: oxyCODONE IR 5 MG TAB PO PRN (11:38)
[2016-04-21] MEDS: ISOSORBIDE DINITRATE 10 MG TAB PO SCH (11:48)
--- NOTE | 2016-04-21 13:20 | SOAPPROG ---
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 Pt has extensive lumbar disease, causing pain. He did receive XRT to spine before first course of chemotherapy. His next treatment (C2D1) is tentatively due on 05/01/2016. Hgb down to 7.5 today. Will transfuse today 1 unit of PRBC, will check CBC in the AM. Plts are down to 45k. He doesn't have gross bleeding clinically. Etiology is probably decrease reserve/underproduction due to age and chemo as well as increased consumption due to surgery. 2.) LLL infiltrate, c/w pneumonia - on antibiotics. Cough is producing sputum. 3.) Hypoxemia 4.) COPD 5.) CAD, S/P placement of multiple intra-coronary art. stents 6.) L prox. femur lytic disease- at risk for path. Fx. Today is POD #2 after intramedullary nail placement. He walked to door of his room today. 7.) Pain control issues - adequate control on current regimen Plan: 1.) Continue antibiotics, oxygen, supportive meds and analgesics. 2.) TXN 1 unit of PRBC 3.) Next chemo tentatively on 05/01/2016. I reassured him that we would continue to follow him post op and arrange for chemo at the appropriate time and location. 4.) Re check CBC in AM Subjective: Fatigued but anxious to get stronger. Objective: Vital Signs Temp Pulse Resp BP Pulse Ox 36.1 C 88 20 97/47 L 94 04/21/16 08:00 04/21/16 08:00 04/21/16 08:00 04/21/16 11:48 04/21/16 08:00 Laboratory Results 04/21/16 09:51 04/21/16 04:32 04/19/16 04/20/16 04/21/16 23:59 23:59 23:59 Intake Total 2308 1400 900 Output Total 1540 550 700 Balance 768 850 200 PT 13.9 SEC (12.0-15.0) 04/14/16 06:00 INR 1.08 (0.83-1.16) 04/14/16 06:00 Physical Exam - Physical Exam General Appearance: mild distress Skin: pallor Neuro/Psych: normal mood/affect ICD10 Worksheet Patient Problems: Problems Problem Status Onset Urinary retention due to benign prostatic hyperplasia Acute
--- NOTE | 2016-04-21 14:16 | HOSPPROG ---
Hospitalist Progress Note Assessment/Plan: 80 yo M w metastatic lung cancer and CAP Acute left leg pain: femur lytic lesion (new from MRI Jan), s/p intratrochanteric nail 04/19 -pain well controlled on IV steroids and MS Contin. transition steroids to PO Prednisone today - Holding ASA, Plavix: cont to hold today -non-weight bearing L4-5 compression fracture: NSGY evaluated. Opt for conservative management given extensive surgery warrants to stabilize spine. NSGY team to address family 's questions today Metastatic lung adenocarcinoma -recent XRT to lumbar/sacrum, recent chemo. Next chemo tentatively for 05/01/16 CAD: holding ASA, statin. LLL PNA: (opacity on CXR, reviewed by me) Day 6 Azithro/CTX. Treat total 7 days. Acute hypoxemic resp failure: due to PNA and atelectasis. Abx and incentive spirometry. HTN & slight Bradycardia: -Metoprolol was decreased, continue at current doses -Hold other antihypertensives Post Operative Anemia: -given persistent low hgb and hypotension, will transfuse 1 unit today Leukopenia: likely reactive. Stable. Monitor Thrombocytopenia: Etiology is likely consumption and recent surgery. Will repeat labs in a.m. No signs of bleeding. Will hold Lovenox Diet: regular DVT ppx: SCD's. Holding Lovenox today. Restart once clinically appropriate. S: Still with some pain Feels fatigued Still with low BP Bradycardia has improved. O: VS reviewed NAD MMM RRR DECREASED BS NO EDEMA CBC: WBC: 3.26, Hgb: 7.5, Platelets: 45 CXR: personally reviewed: cardiomegaly. No infiltrate. Objective: Vital Signs Temp Pulse Resp BP Pulse Ox 36.1 C 88 20 97/47 L 94 04/21/16 08:00 04/21/16 08:00 04/21/16 08:00 04/21/16 11:48 04/21/16 08:00 Laboratory Results 04/21/16 09:51 04/21/16 04:32 04/20/16 04/21/16 04/22/16 05:59 05:59 05:59 Intake Total 2308 2300 Output Total 1340 550 300 Balance 968 1750 -300 PT 13.9 SEC (12.0-15.0) 04/14/16 06:00 INR 1.08 (0.83-1.16) 04/14/16 06:00 - Physical Exam Constitutional: no apparent distress, appears nourished, not in pain Eyes: PERRL, anicteric sclera, EOMI Ears, Nose, Mouth, Throat: moist mucous membranes, hearing normal, ears appear normal, no oral mucosal ulcers Cardiovascular: regular rate and rhythym, no murmur, rub, or gallop Respiratory: no respiratory distress, reduced air movement Gastrointestinal: normoactive bowel sounds, soft, non-tender abdomen, no palpable masses Genitourinary: no bladder fullness, no bladder tenderness, no renal bruits Skin: warm, normal color Neurologic: AAOx3 Psychiatric: interacting appropriately, not anxious, not encephalopathic, thought process linear Lymph, Heme, Immunologic: no cervical LAD, no supraclavicular LAD ICD10 Worksheet Patient Problems: Problems Problem Status Onset Urinary retention due to benign prostatic hyperplasia Acute
[2016-04-21] MEDS: FAMOTIDINE 20 MG TAB PO SCH (21:30)
[2016-04-22 05:03] LABS: % IMMATURE GRANULYOCYTES 0.4 % (0.0-1.1); ABSOLUTE IMMATURE GRANULOCYTES 0.01 10^3/uL (0.00-0.10); ADD DIFF? NO; ADD MORPH? NO; ADD SCAN? NO; ATYPICAL LYMPHOCYTE FLAG 0 (0-99); FRAGMENT RBC FLAG 0 (0-99); HEMATOCRIT 24.6 % (40.0-51.0); HEMOGLOBIN 7.8 g/dL (13.7-17.5); LEFT SHIFT FLG 10 (0-99); LIPEMIA HEMOLYSIS FLAG 80 (0-99); MEAN CELL HEMOGLOBIN 27.5 pg (27.9-34.1); MEAN CELL HEMOGLOBIN CONCENTR. 31.7 g/dL (32.4-36.7); MEAN CELL VOLUME 86.6 fL (81.5-99.8); MEAN PLATELET VOLUME 9.9 fL (8.7-11.7); PLATELET CLUMPS FLAG 0 (0-99); RED BLOOD CELL COUNT 2.84 10^6/uL (4.40-6.38); RED CELL DISTRIBUTION WIDTH 16.9 % (11.5-15.2)
[2016-04-22 05:07] LABS: PLATELET COUNT 32 10^3/uL (150-400)
[2016-04-22 05:20] LABS: ANION GAP 3 mEq/L (8-16); CALCIUM 7.6 mg/dL (8.5-10.4); CARBON DIOXIDE 26 mEq/l (22-31); CHLORIDE 107 mEq/L (97-110); CREATININE 0.7 mg/dL (0.7-1.3); GLOMERULAR FILTRATION RATE > 60; GLUCOSE 85 mg/dL (70-100); POTASSIUM 4.2 mEq/L (3.5-5.2); SODIUM 136 mEq/L (134-144)
[2016-04-22] MEDS: traMADol 50 MG TAB PO SCH ×3 (05:31→17:33)
[2016-04-22] MEDS: ACETAMINOPHEN 325 MG TAB PO SCH ×3 (05:31→17:33)
[2016-04-22 05:35] LABS: PLATELET ESTIMATE DECREASED (ADEQ)
[2016-04-22] MEDS: SENNOSIDES/DOCUSATE SODIUM TAB PO SCH ×2 (08:07→21:22)
[2016-04-22] MEDS: GABAPENTIN 300 MG CAP PO SCH ×3 (08:07→21:22)
[2016-04-22] MEDS: ROSUVASTATIN CALCIUM 10 MG TAB PO SCH (08:07)
[2016-04-22] MEDS: EZETIMIBE 10 MG TAB PO SCH (08:07)
[2016-04-22] MEDS: POLYETHYLENE GLYCOL 3350 17 GM PKT PO PRN (08:07)
[2016-04-22] MEDS: PANTOPRAZOLE SODIUM 40 MG TAB PO SCH (08:08)
[2016-04-22] MEDS: AZITHROMYCIN 250 MG TAB PO SCH (08:08)
[2016-04-22] MEDS: morphINE SR 30 MG TAB PO SCH ×2 (08:08→21:23)
[2016-04-22] MEDS: FOLIC ACID 1 MG TAB PO SCH (08:09)
[2016-04-22] MEDS: predniSONE 20 MG TAB PO SCH (08:09)
[2016-04-22] MEDS: oxyCODONE IR 5 MG TAB PO PRN (08:11)
[2016-04-22] MEDS: METOPROLOL TARTRATE 25 MG TAB PO SCH ×2 (09:52→21:23)
--- NOTE | 2016-04-22 12:02 | SOAPPROG ---
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 Pt has extensive lumbar disease, causing pain. He did receive XRT to spine before first course of chemotherapy. His next treatment (C2D1) is tentatively due on 05/01/2016. Hgb 7.8 post 1 unit prbcs today. Plts are down to 32k. as he is postop. i think we should transfuse 1 unit plts 2.) LLL infiltrate, c/w pneumonia - on antibiotics. 3.) Hypoxemia 4.) COPD 5.) CAD, S/P placement of multiple intra-coronary art. stents 6.) L prox. femur lytic disease- at risk for path. Fx. Today is POD #3 after intramedullary nail placement. He walked in the hallway today 7.) Pain control issues - adequate control on current regimen Plan: 1.) Continue antibiotics, oxygen, supportive meds and analgesics. 2.) TXN 1 unit of PLTS 3.) Next chemo tentatively on 05/01/2016. I reassured him that we would continue to follow him post op and arrange for chemo at the appropriate time and location. 4.) Re check CBC in AM 04/22/16 11:57 Subjective: Feels ok pain is under control Objective: Vital Signs Temp Pulse Resp BP Pulse Ox 97.9 F 62 16 112/60 96 04/21/16 23:18 04/21/16 23:18 04/21/16 23:18 04/21/16 23:18 04/21/16 23:18 Laboratory Results 04/22/16 04:13 04/22/16 04:13 04/21/16 04/22/16 04/23/16 05:59 05:59 05:59 Intake Total 2300 500 600 Output Total 550 700 Balance 1750 -200 600 PT 13.9 SEC (12.0-15.0) 04/14/16 06:00 INR 1.08 (0.83-1.16) 04/14/16 06:00 Physical Exam - Physical Exam General Appearance: alert, no apparent distress Respiratory: decreased breath sounds Cardiac/Chest: regular rate, rhythm Abdomen: normal bowel sounds, non-tender Extremities: other (Bruising left lateral thigh, some blood on dressing) ICD10 Worksheet Patient Problems: Problems Problem Status Onset Urinary retention due to benign prostatic hyperplasia Acute
--- NOTE | 2016-04-22 13:04 | HOSPPROG ---
Hospitalist Progress Note Assessment/Plan: 80 yo M w metastatic lung cancer and CAP # Acute left femur lytic lesion -Hip xray (personally reviewed and interpreted) left proximal lytic lesions- s/p intratrochanteric nail 04/19 - pain well controlled on IV steroids and MS Contin. - cont PO Prednisone today - Holding ASA, Plavix: cont to hold today -continue non-weight bearing # L4-5 compression fracture: NSGY evaluated-would require extensive surgery to stabilize spine - plan for conservative management # Metastatic lung adenocarcinoma -recent XRT to lumbar/sacrum, recent chemo. Next chemo tentatively for 05/01/16 - cont PO prednsione # acute thrombocytopenia- platelet count 32- patient's surgical wound weeping this morning - platelet transfusion today # CAD: holding ASA, statin. # LLL PNA- Day 7 Azithro/CTX - finish abx today # Acute hypoxemic resp failure- due to PNA and atelectasis- oxygen saturations 96% on 2 L - Abx and incentive spirometry. # HTN - with slight Bradycardia: - continue decreased dose Metoprolol - continue to Hold other antihypertensives # Post Operative Anemia- mild weeping of the bandages- transfused 1 unit PRBC yesterday - monitor H&H daily # Leukopenia-Stable. Monitor # Diet: regular # DVT ppx: SCD's. Holding Lovenox - secondary to thrombocytopenia I have discussed the case with Oncology- we will transfuse platelets today the patient's counts are in the 30s and he is weeping from his surgical wound Subjective: pain well controlled on current medications- mild constipation Objective: Vital Signs Temp Pulse Resp BP Pulse Ox 36.6 C 62 16 112/60 96 04/21/16 23:18 04/21/16 23:18 04/21/16 23:18 04/21/16 23:18 04/21/16 23:18 Laboratory Results 04/22/16 04:13 04/22/16 04:13 04/21/16 04/22/16 04/23/16 05:59 05:59 05:59 Intake Total 2300 500 600 Output Total 550 700 Balance 1750 -200 600 PT 13.9 SEC (12.0-15.0) 04/14/16 06:00 INR 1.08 (0.83-1.16) 04/14/16 06:00 - Physical Exam Constitutional: chronically ill appearing Eyes: anicteric sclera Ears, Nose, Mouth, Throat: moist mucous membranes Cardiovascular: systolic murmur, bradycardia Respiratory: no respiratory distress, no rales or rhonchi Gastrointestinal: normoactive bowel sounds, soft, non-tender abdomen Genitourinary: no bladder fullness Skin: warm, normal color Musculoskeletal: No asymmetric calves Neurologic: AAOx3 Psychiatric: interacting appropriately, not anxious Lymph, Heme, Immunologic: no cervical LAD ICD10 Worksheet Patient Problems: Problems Problem Status Onset Urinary retention due to benign prostatic hyperplasia Acute
--- NOTE | 2016-04-22 15:21 | SOAPPROG ---
SOAP Progress Note Assessment/Plan: Assessment: Plan: Subjective: states he's having no problems with the surgery dressings C&D with foot NVI cont PT Objective: Vital Signs Temp Pulse Resp BP Pulse Ox 36.6 C 62 16 112/60 96 04/21/16 23:18 04/21/16 23:18 04/21/16 23:18 04/21/16 23:18 04/21/16 23:18 Laboratory Results 04/22/16 04:13 04/22/16 04:13 04/21/16 04/22/16 04/23/16 05:59 05:59 05:59 Intake Total 2300 500 600 Output Total 550 700 Balance 1750 -200 600 PT 13.9 SEC (12.0-15.0) 04/14/16 06:00 INR 1.08 (0.83-1.16) 04/14/16 06:00 ICD10 Worksheet Patient Problems: Problems Problem Status Onset Urinary retention due to benign prostatic hyperplasia Acute
[2016-04-22] MEDS: FAMOTIDINE 20 MG TAB PO SCH (21:23)
[2016-04-23] MEDS: ACETAMINOPHEN 325 MG TAB PO SCH ×5 (00:14→23:29)
[2016-04-23] MEDS: traMADol 50 MG TAB PO SCH ×5 (00:14→23:29)
[2016-04-23 04:41] LABS: HEMATOCRIT 21.6 % (40.0-51.0); LIPEMIA HEMOLYSIS FLAG 80 (0-99); MEAN CELL HEMOGLOBIN 27.5 pg (27.9-34.1); MEAN CELL HEMOGLOBIN CONCENTR. 31.9 g/dL (32.4-36.7); MEAN CELL VOLUME 86.1 fL (81.5-99.8); PLATELET CLUMPS FLAG 10 (0-99); RED BLOOD CELL COUNT 2.51 10^6/uL (4.40-6.38); RED CELL DISTRIBUTION WIDTH 17.2 % (11.5-15.2)
[2016-04-23 04:47] LABS: HEMOGLOBIN 6.9 g/dL (13.7-17.5); PLATELET COUNT 49 10^3/uL (150-400)
[2016-04-23 05:16] LABS: PLATELET ESTIMATE DECREASED (ADEQ)
[2016-04-23] MEDS: AZITHROMYCIN 250 MG TAB PO SCH (08:04)
[2016-04-23] MEDS: PANTOPRAZOLE SODIUM 40 MG TAB PO SCH (08:05)
[2016-04-23] MEDS: METOPROLOL TARTRATE 25 MG TAB PO SCH ×2 (08:05→19:52)
[2016-04-23] MEDS: FOLIC ACID 1 MG TAB PO SCH (08:05)
[2016-04-23] MEDS: SENNOSIDES/DOCUSATE SODIUM TAB PO SCH ×2 (08:05→19:52)
[2016-04-23] MEDS: morphINE SR 30 MG TAB PO SCH ×2 (08:05→19:52)
[2016-04-23] MEDS: oxyCODONE IR 5 MG TAB PO PRN (08:05)
[2016-04-23] MEDS: EZETIMIBE 10 MG TAB PO SCH (08:06)
[2016-04-23] MEDS: predniSONE 20 MG TAB PO SCH (08:06)
[2016-04-23] MEDS: ROSUVASTATIN CALCIUM 10 MG TAB PO SCH (08:06)
[2016-04-23] MEDS: GABAPENTIN 300 MG CAP PO SCH ×3 (08:06→19:52)
[2016-04-23] MEDS: POLYETHYLENE GLYCOL 3350 17 GM PKT PO PRN (08:09)
--- NOTE | 2016-04-23 11:36 | SOAPPROG ---
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 Pt has extensive lumbar disease, causing pain. He did receive XRT to spine before first course of chemotherapy. His next treatment (C2D1) is tentatively due on 05/01/2016. Hgb 6.9, plts 49k post transfusion 2.) LLL infiltrate, c/w pneumonia - on antibiotics. 3.) Hypoxemia 4.) COPD 5.) CAD, S/P placement of multiple intra-coronary art. stents 6.) L prox. femur lytic disease- at risk for path. Fx. Today is POD #4 after intramedullary nail placement. 7.) Pain control issues - adequate control on current regimen Plan: 1.) Continue antibiotics, oxygen, supportive meds and analgesics. 2.) TXN 1 unit of PRBC's 3.) Next chemo tentatively on 05/01/2016. I reassured him that we would continue to follow him post op and arrange for chemo at the appropriate time and location. 4.) Re check CBC in AM 04/22/16 11:57 04/23/16 11:34 Subjective: Feels pretty well pain under good control Objective: Vital Signs Temp Pulse Resp BP Pulse Ox 97.6 F 68 15 166/72 H 94 04/23/16 08:00 04/23/16 08:00 04/23/16 08:00 04/23/16 08:00 04/23/16 08:00 Laboratory Results 04/23/16 04:18 04/22/16 04:13 04/22/16 04/23/16 04/24/16 05:59 05:59 05:59 Intake Total 500 800 Output Total 700 300 Balance -200 500 PT 13.9 SEC (12.0-15.0) 04/14/16 06:00 INR 1.08 (0.83-1.16) 04/14/16 06:00 Physical Exam - Physical Exam General Appearance: alert, no apparent distress Respiratory: decreased breath sounds Cardiac/Chest: regular rate, rhythm Extremities: other (left lat thigh dressing fairly dry) ICD10 Worksheet Patient Problems: Problems Problem Status Onset Urinary retention due to benign prostatic hyperplasia Acute
--- NOTE | 2016-04-23 15:18 | HOSPPROG ---
Hospitalist Progress Note Assessment/Plan: 80 yo M w metastatic lung cancer and CAP # Acute left femur lytic lesion -Hip xray -left proximal lytic lesions- s/p intratrochanteric nail 04/19 - pain well controlled on IV steroids and MS Contin. - cont PO Prednisone today - Holding ASA, Plavix: cont to hold today -continue non-weight bearing # L4-5 compression fracture- Lumbar MRI (personally reviewed and interpreted) with worsening diffuse lumbosacral mets NSGY evaluated-would require extensive surgery to stabilize spine - plan for conservative management # Metastatic lung adenocarcinoma -recent XRT to lumbar/sacrum, recent chemo. Next chemo tentatively for 05/01/16 - cont PO prednsione # Acute on chronic anemia - 2/2 chemotherapy and phlebotomy -hgb 6.9 this am - transfuse 1 UPRBC - monitor H&H daily # acute thrombocytopenia- platelet count 49 after transfusion- patient's surgical wound weeping this morning - platelet transfusion today # CAD: holding ASA, statin. # LLL PNA- completed 7 Day course Azithro/CTX # Acute hypoxemic resp failure- due to PNA and atelectasis- oxygen saturations 100% on 2 L - Abx and incentive spirometry - work on weaning O2. # HTN - with slight Bradycardia: - continue decreased dose Metoprolol - continue to Hold other antihypertensives # Leukopenia-Stable. Monitor # Diet: regular # DVT ppx: SCD's. Holding Lovenox - secondary to thrombocytopenia I have discussed the case with Oncology- we will transfuse PRBC today - nearing dispostion Subjective: pain controlled Objective: Vital Signs Temp Pulse Resp BP Pulse Ox 36.4 C 68 15 166/72 H 94 04/23/16 08:00 04/23/16 08:00 04/23/16 08:00 04/23/16 08:00 04/23/16 08:00 Laboratory Results 04/23/16 04:18 04/22/16 04:13 04/22/16 04/23/16 04/24/16 05:59 05:59 05:59 Intake Total 500 800 Output Total 700 300 100 Balance -200 500 -100 PT 13.9 SEC (12.0-15.0) 04/14/16 06:00 INR 1.08 (0.83-1.16) 04/14/16 06:00 - Physical Exam Constitutional: chronically ill appearing Eyes: anicteric sclera Ears, Nose, Mouth, Throat: moist mucous membranes Cardiovascular: regular rate and rhythym Respiratory: no respiratory distress, no rales or rhonchi Gastrointestinal: normoactive bowel sounds, soft, non-tender abdomen Genitourinary: no bladder fullness Skin: warm, normal color Musculoskeletal: No asymmetric calves Neurologic: AAOx3 Psychiatric: interacting appropriately, not anxious Lymph, Heme, Immunologic: no cervical LAD ICD10 Worksheet Patient Problems: Problems Problem Status Onset Urinary retention due to benign prostatic hyperplasia Acute
[2016-04-23] MEDS: FAMOTIDINE 20 MG TAB PO SCH (19:52)
[2016-04-23 23:22] VITALS: RESP 16; O2SAT 100
[2016-04-24] MEDS: traMADol 50 MG TAB PO SCH ×2 (05:07→12:05)
[2016-04-24] MEDS: ACETAMINOPHEN 325 MG TAB PO SCH ×2 (05:07→12:06)
[2016-04-24] MEDS: MAG HYDROX/AL HYDROX/SIMETH 30 ML UDCUP PO PRN (05:09)
[2016-04-24] MEDS: METOPROLOL TARTRATE 25 MG TAB PO SCH (08:03)
[2016-04-24] MEDS: predniSONE 20 MG TAB PO SCH (08:03)
[2016-04-24] MEDS: POLYETHYLENE GLYCOL 3350 17 GM PKT PO PRN ×2 (08:03→08:13)
[2016-04-24] MEDS: GABAPENTIN 300 MG CAP PO SCH (08:03)
[2016-04-24] MEDS: morphINE SR 30 MG TAB PO SCH (08:04)
[2016-04-24] MEDS: PANTOPRAZOLE SODIUM 40 MG TAB PO SCH (08:04)
[2016-04-24] MEDS: ROSUVASTATIN CALCIUM 10 MG TAB PO SCH (08:05)
[2016-04-24] MEDS: FOLIC ACID 1 MG TAB PO SCH (08:05)
[2016-04-24] MEDS: oxyCODONE IR 5 MG TAB PO PRN ×2 (08:05→12:08)
[2016-04-24] MEDS: SENNOSIDES/DOCUSATE SODIUM TAB PO SCH (08:06)
[2016-04-24] MEDS: EZETIMIBE 10 MG TAB PO SCH (08:07)
[2016-04-24 08:10] VITALS: BP 160/75; PULSE 64; TEMP 98
[2016-04-24 09:19] LABS: HEMOGLOBIN 10.9 g/dL (13.7-17.5)
[2016-04-24 09:22] LABS: HEMATOCRIT 33.5 % (40.0-51.0)
--- NOTE | 2016-04-24 10:12 | PDIAF ---
- Diagnosis Diagnosis: Bone metastasis Code Status: Do Not Resuscitate - Medication Management Discharge Medications: Medications to Continue on Transfer Bisacodyl [Dulcolax] 5 mg PO DAILY PRN 04/14/16 [Last Taken Unknown] Esomeprazole Mag Trihydrate [Nexium] 40 mg PO DAILY 04/14/16 [Last Taken Unknown ] Ezetimibe [Zetia 10 MG (*)] 10 mg PO DAILY 04/14/16 [Last Taken Unknown] Famotidine [Pepcid 20 MG (*)] 20 mg PO HS 04/14/16 [Last Taken Unknown] Folic Acid [Folic Acid 1 MG (*)] 1 mg PO DAILY 04/14/16 [Last Taken Unknown] Metoprolol Tartrate [Lopressor 50 mg (*)] 50 mg PO BID 04/14/16 [Last Taken Unknown] Prochlorperazine Maleate [Compazine 10mg (*)] 10 mg PO Q6H PRN 04/14/16 [Last Taken Unknown] Rosuvastatin Calcium [Crestor 5mg] 5 mg PO DAILY 04/14/16 [Last Taken Unknown] Acetaminophen [Tylenol 325mg (*)] 650 mg PO Q6HRS #0 tab 04/24/16 [Last Taken Unknown] Gabapentin [Neurontin 300 MG (*)] 300 mg PO 0800,1600 #0 cap 04/24/16 [Last Taken Unknown] Gabapentin [Neurontin 300 MG (*)] 600 mg PO HS #0 cap 04/24/16 [Last Taken Unknown] Hydrocodone/APAP 5/325 [[place] 5/325 (*)] 1 - 2 tab PO Q3HRS PRN #0 tab 04/24/16 [Last Taken Unknown] Ondansetron Odt [Zofran Odt 4 mg (*)] 4 mg PO Q4HRS PRN #0 tab 04/24/16 [Last Taken Unknown] Polyethylene Glycol 3350 [Miralax 17 gm (*)] 17 gm PO DAILY PRN #0 pkt 04/24/16 [Last Taken Unknown] Sennosides/Docusate Sodium [Senokot-S] 1 - 2 tab PO BID #0 tab 04/24/16 [Last Taken Unknown] morphINE SR [MS Contin/Oramorph SR 30 mg (*)] 30 mg PO BID #0 tab 04/24/16 [ Last Taken Unknown] oxyCODONE IR [Oxycodone Ir (*)] 5 - 10 mg PO Q3HRS PRN #0 tab 04/24/16 [Last Taken Unknown] predniSONE 40 mg PO DAILY #0 tablet 04/24/16 [Last Taken Unknown] traMADol [Ultram 50 mg (*)] 50 mg PO Q6HRS #0 tab 04/24/16 [Last Taken Unknown] Discharge Medications: Refer to the Discharge Home Medication list for PRN reason. - Orders Services needed: Registered Nurse, Physical Therapy, Occupational Therapy Diet Recommendation: no restrictions on diet Diet Texture: Regular Texture Diet Wound Care Instructions: Please change dressing with tegaderm and gauze BID - Follow Up Care Current Providers and Referrals: Christina Chaves MD [Primary Care Provider] - Syd Perez MD [Medical Doctor] -
[2016-04-24 10:50] LABS: HEMATOCRIT 32.9 % (40.0-51.0); HEMOGLOBIN 10.7 g/dL (13.7-17.5); MEAN CELL HEMOGLOBIN 28.3 pg (27.9-34.1); MEAN CELL HEMOGLOBIN CONCENTR. 32.5 g/dL (32.4-36.7); RED BLOOD CELL COUNT 3.78 10^6/uL (4.40-6.38); RED CELL DISTRIBUTION WIDTH 17.2 % (11.5-15.2)
--- NOTE | 2016-04-24 11:35 | SOAPPROG ---
SOAP Progress Note Assessment/Plan: Assessment: 1. Metastatic NSCLC 2. hip fracture s/p ORIF 3. Anemia due to surgical blood loss and chemo Plan: - d/c to home today - pt has f/u appt with Adwo[facility] Marrufo on 05/01 for consideration of second cycle of chemo 04/24/16 11:35 Subjective: feeling well today Objective: exam unchanged Vital Signs Temp Pulse Resp BP Pulse Ox 36.6 C 64 16 160/75 H 100 04/24/16 08:10 04/24/16 08:10 04/24/16 08:10 04/24/16 08:10 04/24/16 08:10 Laboratory Results 04/24/16 08:52 04/22/16 04:13 04/23/16 04/24/16 04/25/16 05:59 05:59 05:59 Intake Total 800 250 Output Total 300 800 Balance 500 -550 PT 13.9 SEC (12.0-15.0) 04/14/16 06:00 INR 1.08 (0.83-1.16) 04/14/16 06:00 ICD10 Worksheet Patient Problems: Problems Problem Status Onset Urinary retention due to benign prostatic hyperplasia Acute
--- NOTE | 2016-04-25 02:01 | GDS ---
DISCHARGE DIAGNOSES: 1. Acute left femoral lytic lesions status post intratrochanteric nailing. 2. L4-L5 compression fracture. 3. Diffuse worsening of lumbosacral metastases. 4. Metastatic lung adenocarcinoma. 5. Acute on chronic anemia. 6. Acute thrombocytopenia. 7. Coronary artery disease. 8. Left lower lobe pneumonia status post treatment. 9. Acute hypoxic respiratory failure secondary to pneumonia and atelectasis. 10. Hypertension. 11. Chronic leukopenia. HISTORY OF PRESENT ILLNESS: An 80-year-old male, who presented on 04/14/2016 with complaints of lef t leg pain. For details of patient's initial presentation, please see the history and physical date d 04/14/2016. CONSULTATIVE SERVICES: 1. Orthopedic Surgery. 2. Hematology/Oncology. 3. Neurosurgery. PROCEDURES: On 04/19/2016, patient had intertrochanteric nailing. On 04/14/2016, patient had a lum bar spine MRI which showed diffuse worsening of his lumbosacral metastases. HOSPITAL COURSE: 1. Acute left femoral lytic lesion. The patient was evaluated by Orthopedic Surgery and taken to [facility] OR for nailing. The patient had a good postop recovery with minimal weeping from his surgical wo und. PT/OT worked with the patient. Consistently, he was ambulating with a walker on the day of di sposition. He is being discharged to rehabilitation for ongoing strengthening. 2. Progressing metastatic adenocarcinoma of the lung. The patient had recent XRT to his lumbosacra l metastases. He is anticipating chemotherapy early April. He is followed closely by [facility], being d ischarged on oral prednisone with stable pancytopenia. 3. Diffuse lumbosacral compression fracture and metastases. The patient was evaluated by Neurosurg fernie who felt the patient had extensive disease. There was no reasonable surgical intervention. Con servative management was recommended. 4. Acute thrombocytopenia. Patient did receive a platelet transfusion during the stay for signific ant postsurgical weeping. His counts are stable, low on the day of disposition at 32. He will be f ollowed in the next [address] [facility]. MEDICATIONS AT THE TIME OF DISPOSITION: Please reference medication reconciliation printed on 04/24. FOLLOWUP APPOINTMENTS: 1. With [facility]. 2. For post disposition followup of his pancytopenia, as well as ongoing management of his metastat ic adenocarcinoma. PENDING STUDIES: At the time of this dictation are none. TIME SPENT: I spent greater than 30 minutes in the planning and coordination of this care. /[id number]/MODL
== END 2016-04-24 13:32 | DRG 480 ==
LOC: F1N 03:00 → OBSVTOIN 03:28 → F1N 15:45 → F3N 04-19 18:22
PROVIDERS: ADMIT Internal Medicine; ATTEND Internal Medicine
PROC: 0QH706Z Insertion of Intramedullary Internal Fixation Device into Left Upper Femur, Open Approach (ICD-10-PCS; principal; 2016-04-21)
PROC: 30233N1 Transfusion of Nonautologous Red Blood Cells into Peripheral Vein, Percutaneous Approach (ICD-10-PCS; 2016-04-21)
DX: C79.51 Secondary malignant neoplasm of bone (principal); G89.3 Neoplasm related pain (acute) (chronic); M84.58XA Pathological fracture in neoplastic disease, other specified site, initial encounter for fracture; M48.06 Spinal stenosis, lumbar region; Z85.118 Personal history of other malignant neoplasm of bronchus and lung; J18.9 Pneumonia, unspecified organism; J96.01 Acute respiratory failure with hypoxia; D62 Acute posthemorrhagic anemia; J98.11 Atelectasis; N40.1 Benign prostatic hyperplasia with lower urinary tract symptoms; R33.8 Other retention of urine; K59.00 Constipation, unspecified; J44.9 Chronic obstructive pulmonary disease, unspecified; I25.10 Atherosclerotic heart disease of native coronary artery without angina pectoris; Z95.5 Presence of coronary angioplasty implant and graft; Z87.891 Personal history of nicotine dependence
CPT/HCPCS: 97110-GP; 97116-GP; 97161-GP; 97165-GO; 97530-GO; 97535-GO; C1713; C1769; G8978-GP-CL; G8979-GP-CJ; G8987-GO-CL; G8988-GO-CJ; J0690; J0696; J1100; J1170; J1650; J2704; J3010; P9016; P9021; P9035